=== PATIENT | female | born 1975 | race Caucasian/White ===

== ENCOUNTER 2018-06-14 12:00 | Outpatient (RCR) | payer MEDICAID, SELFPAY ==
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
--- NOTE | 2018-06-14 12:27 | HP.PTDCSUM ---
HP - PT D/C Summary It has been my pleasure to treat BALA KLEIN under orders from ASIYA FUNES, for the diagnosis of LUMBAR DDD AND RADICULOPATHY. for a total of 10 visit(s). Discharge Date: 06/14/18 Please see the following information for a summary of their discharge status. - Subjective Subjective: PATIENT REPORTS SHE IS DEFINATELY BETTER THAN SHE WAS BEFORE SHE HAD PHYSICAL THERAPY. SHE REPORTS SHE IS SLEEPING BETTER AND CAN BEND NOW. SHE REPORTS SHE IS WALKING A LOT BETTER AND EVEN THINKS SHE COULD WALK A HALF MILE NOW. SHE REPORTS IT ISN'T PINCHING LIKE IT USE TO. SHE REPORTS SHE IS DOING HER EXERCISES EVERY DAY AT HOME. SHE REPORTS SHE WOULD LIKE TO CONTINUE ON HER OWN WITH HER HOME EX'S AND SHE PLANS TO GET A MEMBERSHIP TO USE THE POOL AT THE DAYS [facility]. PT REPORTS SHE HAD TO DELAY HER EMG DUE TO ISSUES WITH HER SON. EVEN ABLE TO GO OUT IN [employer] THE OTHER DAY - I WAS OK THE NEXT DAY. PATIENT REPORTS SHE THINKS SHE IS BACK TO WHERE SHE WAS LAST SUMMER IN TERMS OF ACTIVITY TOLERANCE. DAILY ACTIVITY DOES NOT INTENSIFY PAIN LIKE IT DID. PATIENT REPORTS THE BURNING AND TINGLING IN HER FEET ARE EVEN BETTER AND COMES AND GOES NOW INSTEAD OF BEING CONSTANT. DECREASED FOOT SX'S WITH ELEVATION AND INCREASED SYMPTOMS IN THE CAR. - Pain R LB Pain Intensity (Out of 10): 2 - Overall Improvement % Improvement: 90 - Objective Objective/Function: INDEP GAIT INTO PT WITHOUT ANY ASSISTIVE DEVICES OR LOB. INDEP TRANSFER SIT TO STAND WITHOUT UE ASSIST. Motor deficit: YUDI LE'S 5/5. Sensory deficit: YUDI LE LIGHT TOUCH SENSATION APPEARS INTACT AND SYMMETIRCAL EXCEPT IN FEET AND EMG IS PENDING. ROM deficit: YUDI LE'S WFL. Reflexes: 2/3 YUDI LE'S. Dural Signs: POSITIVE RIGHT AND NEGATIVE LEFT LE DTR'S. Lumbar mvmt loss: flex - NIL. ext - MIN. R SG - NIL. L SG - NIL. PATIENT DENIES INCREASED PAIN WITH ROM TESTING TODAY. Core strength: POOR. Palpation: TENDERNESS WITH PALPATION OF YUDI LUMBAR PARASPINALS. NO ACUTE TENDERNESS OF LOWER THORACIC SPINE, LUMBAR SPINE, OR YUDI HIPS. - Goals Goal 1:: DECRASE C/O BACK AND YUDI LE SX'S. Goal Progress: Goal Met Goal 2:: IMPROVE PERSONAL CARE, LIFTING, WALKING, SITTING, STANDING, SLEEP, SOCIAL LIFE, TRAVEL AND WORK/HOMEMAKING [employer]. Goal Progress: Goal Met Goal 3:: INSTRUCT IN PROPHYLAXIS Goal Progress: Goal Met - Plan Plan: D/C AT PATIENTS REQUEST TO INDEP HEP AND WATER PROGRAM. - D/C Information If there are questions or concerns regarding this patient's physical therapy, please feel free to call me at [phone]. Thank you for the referral of this patient. Sincerely, Josefina Oliva, PT, Cert MDT
== END 2018-06-14 19:00 | disposition home or self-care (01) ==
LOC: PT 12:00
PROVIDERS: Family Provider Family Medicine; PCP Family Medicine
DX: M79.7 Fibromyalgia (principal); G89.0 Central pain syndrome; M46.1 Sacroiliitis, not elsewhere classified; R20.2 Paresthesia of skin; M51.36 Other intervertebral disc degeneration, lumbar region; M54.16 Radiculopathy, lumbar region
CPT/HCPCS: 97113; 97162; 97530

== ENCOUNTER 2018-06-15 13:46 | Emergency (ER) | payer MEDICAID, SELFPAY ==
[2018-06-15 13:47] VITALS: BP 157/78; PULSE 62; RESP 16; TEMP 36.6; O2SAT 100; BMI 34.9
--- NOTE | 2018-06-15 13:54 | EKG12_ITS ---
Test Reason : Blood Pressure : / mmHG Vent. Rate : 060 BPM Atrial Rate : 060 BPM P-R Int : 152 ms QRS Dur : 096 ms QT Int : 440 ms P-R-T Axes : 043 056 035 degrees QTc Int : 440 ms Normal sinus rhythm Normal ECG Confirmed by FALGUNI BATISTA, MARIO ([id number]), video news editor KATHY JACKSON ([id number]) on 06/19/2018 1:09:32 PM Referred By: ASIYA FUNES Confirmed By:MARIO MONTES DE OCA MD
--- NOTE | 2018-06-15 13:59 | ED.VIS.GEN ---
History of Present Illness Chief Complaint: Shortness of Breath Detail of Chief Complaint: Central chest pain Informant: Patient Onset: Today Context: - - Onset 1.5 hours prior to presentation while sitting Timing: Continuous Quality: Central vague chest discomfort Location: Central chest Current Severity: Moderate Maximum Severity: Moderate Worsened by: Nothing Relieved by: Nothing Associated Symptoms: Does not feel her normal self Narrative: Patient is a 42-year-old woman history of fibromyalgia who had IV lidocaine therapy for her fibromyalgia. She states she is normally normal after 2 days. She does not feel normal. She has a vague central chest discomfort with radiation, nausea or diaphoresis. Possibly mild shortness of breath. She stated she presented because she wanted to be evaluated. She denies orthopnea or PND. Father had congestive heart failure. She is a non-smoker. She also reports no alcohol or drug use. She denies history of PE, DVT or any risk factors. She denies leg pain, swelling discoloration. She denies food intolerance. - Past Medical History (1) Fibromyalgia affecting multiple sites Status: Chronic (2) Edema Status: Acute (3) Hypertension Status: Acute Past Medical History - Allergies and Home Meds Allergies/Adverse Reactions: Allergies No Known Allergies Allergy (Verified 06/15/18 13:49) Primary Care Physician: Evi Prather DO [Primary Care Provider] - Prior records reviewed: Yes Smoking Status: Never smoker Alcohol: None Drugs: None Review of Systems General: Denies: Chills, Fever, Sweats Eyes: Denies: Visual changes - bilaterally, Blurred Vision - bilaterally, Diplopia ENT: Denies: Bilateral ear pain, Rhinorrhea, Sore throat Cardiovascular: Reports: Chest pain. Denies: Palpitations Respiratory: Reports: Dyspnea. Denies: Cough, Dyspnea on exertion Gastrointestinal: Denies: Abdominal pain, Nausea, Vomiting, Diarrhea, Melena, Hematochezia Genitourinary: Denies: Dysuria, Hematuria, Frequency Musculoskeletal: Denies: Back pain, Extremity Pain Skin: Denies: Rash, Wounds Neurological: Denies: Headache, Weakness, Numbness Endocrine: Denies: Polyuria, Polydipsia Allergy: Denies: Uticaria, Swelling of the mouth Physical Exam Vital Signs/Narrative: Vital Signs Temp Pulse Resp BP Pulse Ox 06/15/18 13:47 98 F 62 16 157/78 H 100 Inital Vital Signs reviewed: Yes General: Well nourished, Well developed, Obese, No Acute Distress Head: Normocephalic, Atraumatic Eyes: Perrl, EOMI ENT: Moist mucous membranes, No rhinorrhea Neck: Supple, Nontender Cardiovascular: Regular rate, Regular rhythm, No murmurs Respiratory: No distress, CTA bilaterally, Chest nontender Abdomen: Soft, Nontender, Nondistended, Normal bowel sounds Back: Nontender, Normal Inspection Extremities: Nontender, No edema Skin: Normal color, No rash, - - Patient reports pain out of proportion to light tactile stimulus chest, abdomen and extremities. Neurological: Alert, Oriented x3, Cranial nerves II-XII grossly intact, Normal Strength, Normal Sensation, Normal Gait Psychological: Normal affect, Normal Mood Diagnostic/Tx/Re-eval Chest X-Ray - ED: 2 View, Read by ED Physician, Normal, Heart, Lungs, Mediastinum, Bony Structures, No Acute Disease 06/15/18 15:00 Chest PA and Lateral [RAD] Stat Laboratory Results 06/15/18 14:57 Troponin I < 0.015 - Rhythm Strip Rhythm Strip: Sinus Rhythm Rate: 62 Ectopy: None - EKG Initial EKG Interpretation: Sinus Rhythm - Ventricular rate 60. FL interval, QRS duration, QT interval and axis are normal. The EKG is normal. - Medical Decision Making EKG was obtained per protocol and to evaluate for cardiac ischemia. Patient's heart score is 0 at this point. If troponin is normal her heart score remains 0. Chest x-ray was obtained to evaluate for infiltrate, CHF or other cause of shortness of breath. EKG was obtained and reveals a sinus rhythm rate of 60 and is normal. Patient is PERC negative. With normal troponin heart score of 0 will discharge to home and outpatient follow-up with PCP ED Disposition - Plan for ED Patient: Disposition: Home or Assisted Living Diagnosis: Central chest pain, Dyspnea, unspecified, Fibromyalgia affecting multiple sites, Hypertension Instructions: ED Chest Pain NonCardiac Referrals: Evi Prather DO [Primary Care Provider] - 3-5 Days
[2018-06-15 14:03] VITALS: O2SAT 95
--- NOTE | 2018-06-15 15:00 | RAD_ITS ---
STUDY: X-RAY CHEST REASON FOR EXAM: Female, 42 years old. chest pain for a couple hours and SOB TECHNIQUE: Frontal and lateral views of the chest. COMPARISON: None. FINDINGS: The lungs are clear and expanded. There is no demonstrated pleural abnormality. Normal size heart. Normal mediastinum and wilmer. Normal visualized pulmonary arteries. Normal visualized aortic arch and descending thoracic aorta. Normal visualized thoracic spine. There is degenerative osteoarthritis of the bilateral shoulders. There is no demonstrated abnormality of the visualized soft tissue structures of the upper abdomen. RAD/Chest PA and Lateral IMPRESSION: Degenerative changes, as described above. No demonstrated acute cardiopulmonary process. Electronically Signed: Angi Mcelroy, at 16:01 EDT Tel , Service support ,
[2018-06-15 15:31] VITALS: PULSE 50; O2SAT 99
== END 2018-06-15 15:35 | disposition home or self-care (01) ==
PROVIDERS: Emergency Provider Emergency Medicine; Family Provider Family Medicine; PCP Family Medicine
DX: R06.02 Shortness of breath (principal); R07.9 Chest pain, unspecified; M79.7 Fibromyalgia; I10 Essential (primary) hypertension; Z79.899 Other long term (current) drug therapy
CPT/HCPCS: 71046; 84484; 93005; 99285; A4216

== ENCOUNTER → 2018-07-07 08:01 | Outpatient (CLI) | payer MEDICAID, SELFPAY ==
[2018-06-15 13:47] VITALS: BMI 34.9
--- NOTE | 2018-07-07 08:03 | RAD_ITS ---
STUDY: X-RAY - RIGHT KNEE REASON FOR EXAM: Female, 42 years old. Knee pain times many years TECHNIQUE: 4 view(s) of the knee. COMPARISON: Report of previous study of 12/24/2011. FINDINGS: Normal visualized distal femur. Normal visualized proximal tibia and fibula. Normal proximal tibiofibular articulation. There is mild degenerative arthrosis of the medial femorotibial compartment. Normal lateral femorotibial compartment. Normal patellofemoral articulation. The soft tissue structures are unremarkable. RAD/Knee 4 or More Views IMPRESSION: Minimal degenerative changes of the medial knee compartment. Electronically Signed: Dada Hamm MD at 16:52 EDT , Service support ,
== END ==
PROVIDERS: Family Provider Family Medicine; PCP Family Medicine; Referring Provider Family Medicine; Visit Provider Family Medicine
DX: M25.561 Pain in right knee (principal)
CPT/HCPCS: 73564

== ENCOUNTER → 2018-12-15 15:24 | Outpatient (CLI) | payer MEDICAID, SELFPAY ==
--- NOTE | 2018-12-15 16:00 | MRI_ITS ---
STUDY: MRI LUMBAR SPINE WITHOUT CONTRAST REASON FOR EXAM: Female, 43 years old. Low back pain, right leg and hip pain TECHNIQUE: Standardized fat and water weighted pulse sequences were obtained in the sagittal and axial planes. COMPARISON: 31 October 2008 FINDINGS: lumbar spine is intact and aligned. Marrow, paraspinous soft tissues and SI joints are unremarkable. There are minor age-related changes in the discs and facets. Conus medullaris terminates at the appropriate level with unremarkable cauda equina. Spinal canal is patent. Foramina and lateral recesses are patent. Appearance is stable since 2008. MRI/Spine Lumbar (Routine) IMPRESSION: 1. Patent canal, no neural compression. 2. No change since 2008. Electronically Signed: Karen Kennedy, at 17:58 EDT Tel , Service support ,
== END ==
PROVIDERS: Family Provider Family Medicine; PCP Family Medicine
DX: M54.16 Radiculopathy, lumbar region (principal)
CPT/HCPCS: 72148

== ENCOUNTER 2019-04-28 11:41 | Emergency (ER) | payer MEDICAID, SELFPAY ==
[2019-04-28 11:44] VITALS: BP 154/78; PULSE 83; RESP 17; TEMP 37.1; O2SAT 100; BMI 34.1
--- NOTE | 2019-04-28 12:30 | RAD_ITS ---
STUDY: X-RAY - RIGHT HAND REASON FOR EXAM: Female, 43 years old. PAIN/ STS METACARPI AREA, RADIAL SIDE. HX DOG BITE TECHNIQUE: 3 view(s) of the hand. COMPARISON: April 21, 2015 FINDINGS: There is a side plate cortical screws transfixing the distal radius. One of the cortical screws still partially projects into the cortical surface of the distal radius with now with surrounding bony resorption. Normal distal radioulnar joint. Normal visualized carpal bones. Normal carpal articulations Normal carpometacarpal articulation of the thumb. Normal second through fifth carpometacarpal joints. Normal metacarpi. Normal metacarpophalangeal joint of the thumb. Normal interphalangeal joint of the thumb. Normal proximal and distal phalanges of the thumb. Normal metacarpophalangeal joints of the second through fifth fingers. Normal proximal and distal interphalangeal joints of the second through fifth fingers. Normal phalanges of the second through fifth fingers. The lateral view shows substantial superficial soft tissue edema. RAD/Hand Min 3 Views IMPRESSION: Stable open reduction internal fixation of the distal radius healed fracture. No visualized acute fracture. Superficial soft tissue edema. No visualized acute fracture no visualized foreign body. Electronically Signed: Melissa Malone MD at 13:20 EST Tel , Service support ,
--- NOTE | 2019-04-28 12:32 | ED.VIS.GEN ---
History of Present Illness Chief Complaint: Bite Informant: Patient Onset: Today Maximum Severity: Mild Narrative: Dog bite right hand stray dog today patient denies really any significant history was walking her dog when another dog approached and she was inadvertently bitten by this other large dog right hand this occurred around 830 she presents for evaluation she is right-hand dominant Past Medical History - Allergies and Home Meds Allergies/Adverse Reactions: Allergies No Known Allergies Allergy (Verified 04/28/19 11:42) Primary Care Physician: Evi Prather DO [Primary Care Provider] - Past Medical History: - Smoking Status: Former smoker Review of Systems ROS: - As above General: Denies: Chills, Fever, Sweats Eyes: Denies: Visual changes - bilaterally, Diplopia ENT: Denies: Rhinorrhea, Sore throat Cardiovascular: Denies: Chest pain, Palpitations Respiratory: Denies: Dyspnea, Cough, Dyspnea on exertion Gastrointestinal: Denies: Abdominal pain, Nausea, Vomiting, Diarrhea, Melena, Hematochezia Genitourinary: Denies: Dysuria, Hematuria, Frequency Musculoskeletal: Reports: -. Denies: Back pain, Extremity Pain Skin: Denies: Rash, Wounds Neurological: Denies: Headache, Weakness, Numbness Physical Exam Vital Signs/Narrative: Vital Signs Temp Pulse Resp BP Pulse Ox 04/28/19 11:44 98.8 F 83 17 154/78 H 100 General: Well nourished, Well developed, No Acute Distress Head: Normocephalic, Atraumatic Eyes: Perrl, EOMI ENT: Moist mucous membranes, No rhinorrhea Neck: Supple, Nontender Cardiovascular: Regular rate, Regular rhythm, No murmurs Respiratory: No distress, CTA bilaterally, Chest nontender Abdomen: Soft, Nontender, Nondistended, Normal bowel sounds Back: Nontender, Normal Inspection Extremities: Nontender, No edema, - - The patient has contusion and edema and scattered lacerations over the right hand dorsally over the thenar area and over the mid palmar area of the hand, there is no significant bleeding from these areas, she is able to flex and extend at the MCP PIP and DIP joint of fingers thumb function appears to be intact hand movement is restricted because of pain the wrist is unremarkable Skin: Normal color, No rash Neurological: Alert, Oriented x3, Cranial nerves II-XII grossly intact, Normal Strength, Normal Sensation Psychological: Normal affect, Normal Mood Diagnostic/Tx/Re-eval - Medical Decision Making Dog bite right hand given all the above x-rays pain management antibiotics ED Disposition - Plan for ED Patient: Referrals: Evi Prather DO [Primary Care Provider] -
[2019-04-28] MEDS: Diphth,Pertuss(Acell),Tet Vac 0.5 ML Vial IM (12:52)
[2019-04-28] MEDS: Ondansetron ODT 4 MG Tablet PO (12:52)
[2019-04-28] MEDS: morphine 10 MG/ML Syringe 8 MG IM (12:54)
--- NOTE | 2019-04-28 13:24 | DCINST.ED_ITS ---
ED Disposition - Plan for ED Patient: Instructions: Dog Bite Prescriptions: Amox/Clavulanate Tablet [Augmentin Tablet] 875 mg PO Q12H #20 tab Prescription Printed Naproxen [Naprosyn] 500 mg PO BID PRN #20 tab Prescription Printed Hydrocodone Bitart/Apap 5-325 [[place] 5MG-325MG] 1 tab PO Q4H PRN PRN 2 Days #10 tab PRN Reason: Pain Prescription Printed Referrals: Evi Prather DO [Primary Care Provider] - Jm Miller [NON-STAFF] - Additional Instructions: Wound care splinting follow-up with your orthopedic surgeon's office or plastic surgery office return for signs of infection or change in symptoms
[2019-04-28] MEDS: Amox/Clavulanate 875 MG Tablet PO (13:51)
[2019-04-28 14:12] VITALS: BP 146/87; PULSE 67; RESP 17; O2SAT 97
== END 2019-04-28 14:14 | disposition home or self-care (01) ==
LOC: ED 13:00
PROVIDERS: Emergency Provider Emergency Medicine; PCP Family Medicine
DX: S61.451A Open bite of right hand, initial encounter (principal); W54.0XXA Bitten by dog, initial encounter; Y93.K1 Activity, walking an animal; Y99.8 Other external cause status; Z87.891 Personal history of nicotine dependence
CPT/HCPCS: 73130; 90715; 96372; 99282

== ENCOUNTER 2019-06-05 13:30 | Outpatient (RCR) | payer MEDICAID, SELFPAY ==
[2019-05-01 08:06] VITALS: BMI 34.1
[2019-05-08 08:26] VITALS: BMI 34.1
--- NOTE | 2019-05-08 16:06 | HP.OTEVAL_ITS ---
Patient's Visit Information BALA KLEIN is a 43 year old F, referred to Occupational Therapy by Dr. Lizbeth Layne DO, with a diagnosis of right dog bite. Date of Evaluation: 05/08/19 Occupational Therapist: CHEO Dutton/Dwight, CHT - Subjective Subjective: This 43 year old female was seen for OT eval with dx of right dog bite. pt states she was bit by a dog on 2019. pt presents today with limited ROM, sensitivity and limited use of right hand with ADls and IADLS. pt would like to know what she can do to return to using her and with ADLs and IADLS. - Pain right hand 9 Pain Intensity Range: 9 - Objective Objective/Observation: wound on volar hand 1.5cm long .2cm wide. dorsal 1.0cm long x .2 wide - ROM Wrist: right 40/45 left 60/70 ROM Comments: pt demo the ability to form a composite fist- pain with motion but full ROM - Strength Transaction Processor: right 15# left 55# Lateral Pinch: right 6# left 8# Tripod Pinch: right 6# left 8# - Edema Wrist: right 18cm left 17.5cm Proximal Phalanx: right 21cm left 20cm Other: right 23cm web space 21cm - Sensation Thumb: right 2.83 left 2.83 Index: right 3.22 left 2.83 Middle: right 2.83 left 2.83 Ring: right 2.83 left 2.83 Little: right 2.83 left 2.83 - Quick DASH-Disab of Arm,Shoulder& Hand Quick DASH Score: [phone] - Goals Goal:: 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 Pt will demo an increase in lateral and tripod pinch by 2# to increase pts independent with opening baggies, containers at PLOF by D/C. Goal:: Pt will report pain no greater than 1/10 with use of affected hand with BADLs and IADLs by d/c. Goal:: pt will demo a reduction in right hand by 1 cm or more to decrease stress on underlying structures. Pt will demo understanding of edema control techniques by end of 2nd session and perform recommendations to control edema. Goal:: Pt will demo understanding of scar mtg. by end of 2nd session to increase tissue extensibility to limit scar adhesions and allow full tendons function by d/c. Pt will demo a decrease is scar sensitivity to tolerate wearing long sleeve shirts by D/c. - Rehabilitation General Assessment: pt demo with edema, pain, and sensitivity of right hand due to bog bite- pt demo with two open wounds. pt is currently limited with her ability to perform her ADLs and IADLS. Pt would benefit from skilled OT services 1-2x week for 6 weeks to return pt to PLOF. Today therapist provided warm water soak, wound care, ed. pt on scar mtg and desensitization. pt was given handout on HEP. pt demo understanding and agree to POC. Rehabilitation Potential: Good - Anticipated Interventions Anticipated Interventions: A/AAROM/PROM, Strengthening, Edema Control, Scar Care, Desensitization, Sensory Retraining, Wound Care, Modalities - Visit Plan Frequency: 2x /Week Duration: 6 Weeks TEXT: Thank you for the opportunity to evaluate your patient. For Medicare and Medicare HMO plans, please review the plan of care and approve it. It will need to be FAXED BACK to us at [phone] for Medicare purposes. Please let me know if there are questions or concerns regarding this plan of care. Physician Signature: Date:
--- NOTE | 2019-06-05 13:49 | HP.OTDCSUM ---
HP - OT D/C Summary It has been my pleasure to treat BALA KLEIN under orders from Dr. Lizbeth Layne DO, for the diagnosis of right dog bite for a total of 6 visit(s). Please see the following information for a summary of their discharge status. - Overall Improvement % Improvement: 85 - Objective Objective/Function: right 40# left 45#. right lateral pinch 10#. right tripod pinch 10#. edema webspace 21cm initial was 23cm . pt states she GERARDO with all ADLs and IADLS - Goals Patient Goals: Regain Mobility, Regain Strength, Decrease Pain, Decrease Swelling/Stiffness Goal:: PT will demo an increase in facility practice specialist strength by 20# to increase independent with basic occupations of daily living to return pt to PLOF by D/C. Pt will demo an increase in lateral and tripod pinch by 2# to increase pts independent with opening baggies, containers at PLOF by D/C. Goal:: Pt will report pain no greater than 1/10 with use of affected hand with BADLs and IADLs by d/c. Goal:: pt will demo a reduction in right hand by 1 cm or more to decrease stress on underlying structures. Pt will demo understanding of edema control techniques by end of 2nd session and perform recommendations to control edema. Goal:: Pt will demo understanding of scar mtg. by end of 2nd session to increase tissue extensibility to limit scar adhesions and allow full tendons function by d/c. Pt will demo a decrease is scar sensitivity to tolerate wearing long sleeve shirts by D/c. - Plan Plan: cont with POC to increase use and strength as pt jennifer. - use of BTE to increase pts strength - D/C Information Discharge Comments: pt was seen for 6 OT visit- pt demo full return of her ROM and a increase in right facility practice specialist strength from 15# to 45# pt reports she still gets pain from time to time but pt states she is able to mtg her pain. pts edema has resolved. pt reports she is IND with ADLS and IADLs. pt has met goals in OT and is D/C at this time. If there are questions or concerns regarding this patient's occupational therapy, please fell free to call me at [phone]. Thank you for the referral of this patient. Sincerely, Zuleyma Sharma, OTR/L, CHT
== END 2019-06-05 19:00 | disposition home or self-care (01) ==
LOC: OT 13:30
PROVIDERS: PCP Family Medicine; Referring Provider Orthopaedic Surgery; Visit Provider Orthopaedic Surgery
DX: S61.451D Open bite of right hand, subsequent encounter (principal); W54.0XXD Bitten by dog, subsequent encounter
CPT/HCPCS: 97035; 97110; 97140; 97166; 97530

== ENCOUNTER → 2019-10-29 15:10 | Outpatient (CLI) | payer MEDICAID, SELFPAY ==
[2019-05-08 08:26] VITALS: BMI 34.1
--- NOTE | 2019-10-29 15:23 | RAD_ITS ---
STUDY: X-RAY - THORACIC SPINE REASON FOR EXAM: Female, 44 years old. Thoracic radiculitis TECHNIQUE: 5 view(s) of the thoracic spine were obtained. COMPARISON: None. FINDINGS: There is an increase in the normal thoracic kyphosis. There is no substantial scoliosis. There is multilevel endplate spondylosis of the thoracic vertebrae. There is multilevel disc space narrowing of the thoracic spine. The soft tissue structures are unremarkable. RAD/Thoracic Spine Min 4 Views IMPRESSION: Increased kyphosis. Spondylosis and disc space narrowing. Electronically Signed: Jonny Schwab, at 15:13 EDT , Service support ,
== END ==
PROVIDERS: PCP Family Medicine
DX: M54.14 Radiculopathy, thoracic region (principal)
CPT/HCPCS: 72074

== ENCOUNTER → 2020-02-27 17:50 | Outpatient (CLI) | payer MEDICAID, SELFPAY ==
[2019-05-08 08:26] VITALS: BMI 34.1
== END ==
PROVIDERS: PCP Family Medicine; Referring Provider Family Medicine; Visit Provider Family Medicine
DX: Z20.828 Contact with and (suspected) exposure to other viral communicable diseases (principal); R06.00 Dyspnea, unspecified
CPT/HCPCS: 87635; C9803; U0003

== ENCOUNTER → 2020-05-27 06:57 | Outpatient (CLI) | payer MEDICAID, SELFPAY ==
[2019-05-08 08:26] VITALS: BMI 34.1
[2020-05-27 08:35] LABS: Anion Gap 7 (5-15); BUN 14 mg/dL (7-18); BUN/Creat Ratio 16.6 RATIO (10-20); Calcium,Total 8.8 mg/dL (8.5-10.1); Chloride 105 mmol/L (98-107); Creatinine, Serum 0.84 mg/dL (0.55-1.02); EST Glomerular Filtration Rate 78 mL/min (>60); Est Glom Filt Rate - Afr Amer 94 mL/min (>60); Glucose 91 mg/dL (74-106); Potassium 3.2 mmol/L (3.5-5.1); Sodium Level 139 mmol/L (136-145)
[2020-05-27 08:45] LABS: Hemoglobin A1c 5.6 % (3.8-5.6)
== END ==
PROVIDERS: PCP Family Medicine; Referring Provider Family Medicine; Visit Provider Family Medicine
DX: R81 Glycosuria (principal)
CPT/HCPCS: 36415; 80048; 83036

== ENCOUNTER → 2020-10-07 11:07 | Outpatient (CLI) | payer MEDICAID, SELFPAY ==
[2020-10-07 15:24] LABS: Color, Urine Yellow (Yellow); Glucose, Dipstick Normal (Normal); Ketone-Dipstick Negative (Negative); Leukocyte Esterase-Dipstick Negative /ul (Negative); Nitrite-Dipstick Negative (Negative); Occult Blood-Urine Negative /ul (Negative); Protein-Dipstick Negative (Negative); Urine Bilirubin Dipstick Negative (Negative); Urine Clarity Clear (Clear); Urine Urobilinogen Normal (Normal)
[2020-10-07 15:29] LABS: Erythrocyte Sedimentation Rate 10 mm/hr (0-30)
[2020-10-07 15:39] LABS: Vitamin B12 387 pg/mL (211-911); Vitamin D,25 Hydroxy 26.4 ng/mL
[2020-10-07 15:49] LABS: Absolute Lymphocyte Count 1.79 X10^3/uL (0.83-4.51); Absolute Neutrophil Count 2.9 X10^3/uL (2.0-7.7); Basophil# 0.04 X10^3/uL; Basophil% 0.8 % (0-1); Eosinophil# 0.14 X10^3/uL; Eosinophils% 2.7 % (0-5); Hematocrit 35.1 % (37-47); Hemoglobin 9.6 g/dL (12.0-15.0); Lymphocyte # 1.79 X10^3/ul (0.83-4.51); Lymphocyte % 34.4 % (19-41); Mean Corp Hgb Conc 27.4 g/dL (32-36); Mean Corpuscular Hgb 18.8 pg (27.0-32.0); Mean Corpuscular Volume 68.8 fL (81-99); Mean Platelet Vol. 10.5 fl (6.2-12.0); Monocyte# 0.31 X10^3/uL; NRBC Flagged by Analyzer 0 % (0-5); Neutrophil # 2.91 X10^3/uL (2.7-7.7); Neutrophil % 55.9 % (47-70); Platelet Count 389 K/mm3 (150-450); RBC Distribution Width CV 17.6 % (11.6-14.6); RBC Distribution Width SD 42.7 fl (35.1-43.9); White Blood Count 5.2 K/mm3 (4.4-11.0)
[2020-10-07 15:51] LABS: AST(SGOT) 20 U/L (15-37); Alanine Aminotransfer ALT/SGPT 25 U/L (13-56); Alkaline Phosphatase 63 U/L (45-117); Anion Gap 10 (5-15); BUN 15 mg/dL (7-18); BUN/Creat Ratio 15.8 RATIO (10-20); CRP < 2.90 mg/L (0.0-3.0); Calcium,Total 9.3 mg/dL (8.5-10.1); Chloride 105 mmol/L (98-107); Creatinine, Serum 0.95 mg/dL (0.55-1.02); EST Glomerular Filtration Rate 68 mL/min (>60); Est Glom Filt Rate - Afr Amer 82 mL/min (>60); Globulin 3.9 g/dL (2.2-4.2); Glucose 83 mg/dL (74-106); Potassium 3.2 mmol/L (3.5-5.1); Protein, Total 7.9 g/dL (6.4-8.2); Rheumatoid Factor < 10.0 IU/mL (<15); Sodium Level 138 mmol/L (136-145)
[2020-10-09 15:40] LABS: Anti-Nuclear Antibody Test Negative (.)
[2020-10-10 08:16] LABS: CCP IgG Antibodies 5 units (0-19)
== END ==
PROVIDERS: PCP Family Medicine; Referring Provider Family Medicine; Visit Provider Family Medicine
DX: M06.4 Inflammatory polyarthropathy (principal); I10 Essential (primary) hypertension; G62.9 Polyneuropathy, unspecified; R60.9 Edema, unspecified
CPT/HCPCS: 36415; 80053; 81002; 82306; 82607; 85025; 85652; 86038; 86140; 86200; 86431

== ENCOUNTER → 2020-10-28 09:59 | Outpatient (CLI) | payer MEDICAID, SELFPAY ==
[2020-10-28 12:01] LABS: Absolute Lymphocyte Count 1.24 X10^3/uL (0.83-4.51); Absolute Neutrophil Count 2.6 X10^3/uL (2.0-7.7); Basophil# 0.03 X10^3/uL; Basophil% 0.7 % (0-1); Eosinophil# 0.14 X10^3/uL; Eosinophils% 3.2 % (0-5); Hematocrit 37.2 % (37-47); Hemoglobin 10.4 g/dL (12.0-15.0); Lymphocyte # 1.24 X10^3/ul (0.83-4.51); Lymphocyte % 28.7 % (19-41); Mean Corpuscular Hgb 20.8 pg (27.0-32.0); Mean Corpuscular Volume 74.4 fL (81-99); Mean Platelet Vol. 10.3 fl (6.2-12.0); Monocyte# 0.26 X10^3/uL; NRBC Flagged by Analyzer 0 % (0-5); Neutrophil # 2.64 X10^3/uL (2.7-7.7); Neutrophil % 61.2 % (47-70); POSITIVE MORPHOLOGY YES; Platelet Count 320 K/mm3 (150-450); RBC Distribution Width CV 23.8 % (11.6-14.6); RBC Distribution Width SD 61.1 fl (35.1-43.9); White Blood Count 4.3 K/mm3 (4.4-11.0)
[2020-10-28 12:16] LABS: Differential Indicated SCAN CRITERIA MET
[2020-10-28 12:28] LABS: AST(SGOT) 22 U/L (15-37); Alanine Aminotransfer ALT/SGPT 25 U/L (13-56); Albumin, Serum 3.6 g/dL (3.2-5.0); Alkaline Phosphatase 54 U/L (45-117); Anion Gap 6 (5-15); BUN 10 mg/dL (7-18); BUN/Creat Ratio 12.9 RATIO (10-20); Calcium,Total 8.7 mg/dL (8.5-10.1); Chloride 108 mmol/L (98-107); Creatinine, Serum 0.77 mg/dL (0.55-1.02); EST Glomerular Filtration Rate 86 mL/min (>60); Est Glom Filt Rate - Afr Amer 104 mL/min (>60); Ferritin 13 ng/mL (8-252); Globulin 3.5 g/dL (2.2-4.2); Glucose 90 mg/dL (74-106); Iron 39 ug/dL (50-170); Magnesium 1.9 mg/dL (1.6-2.6); Potassium 3.2 mmol/L (3.5-5.1); Protein, Total 7.1 g/dL (6.4-8.2); Sodium Level 141 mmol/L (136-145)
[2020-10-28 12:33] LABS: Vitamin B12 568 pg/mL (211-911)
[2020-10-28 12:48] LABS: Anisocytosis 1+
== END ==
PROVIDERS: PCP Family Medicine; Referring Provider Family Medicine; Visit Provider Family Medicine
DX: E55.9 Vitamin D deficiency, unspecified (principal); E53.8 Deficiency of other specified B group vitamins; E61.1 Iron deficiency; E87.6 Hypokalemia
CPT/HCPCS: 36415; 80053; 82306; 82607; 82728; 83540; 83735; 85025

== ENCOUNTER → 2021-01-07 07:49 | Outpatient (CLI) | payer MEDICAID, SELFPAY ==
--- NOTE | 2021-01-07 07:51 | US_ITS ---
STUDY: ULTRASOUND OF THE FEMALE PELVIS - COMPLETE REASON FOR EXAM: Female, 45 years old. AUB LMP: 12/28/2020 TECHNIQUE: Transabdominal and Transvaginal TECHNICAL QUALITY: Adequate. COMPARISON: None. FINDINGS: The uterus is anteverted and is in a midline position. The uterus measures 9.7 x 5.2 x 4.8 cm. Normal uterine cervix. The endometrium measures 4 mm in thickness, and is hyperechoic. There is no demonstrated endometrial mass. 1 cm hypoechoic mass in the anterior body of uterus consistent with a submucosal fibroid. I.U.D. - The patient does not have an I.U.D. The right ovary is visualized. The right ovary measures 2.9 x 2.2 x 1.3 cm. There is no right ovarian cyst or ovarian mass. There is no visualized right adnexal mass or complex lesion. There is normal arterial and normal venous vascularity. The left ovary is visualized. The left ovary measures 3.4 x 2.3 x 2.7 cm. There is no left ovarian cyst or ovarian mass. There is no visualized left adnexal mass or complex lesion. There is normal arterial and normal venous vascularity. There is no fluid in the cul-de-sac. The pre void volume of the bladder was ml. The post void volume of the bladder was ml. Polycystic ovary disease: No. US/Pelvic (Non ) IMPRESSION: 1 cm submucosal fibroid in the anterior body of the uterus. Electronically Signed: Gorge Lynne MD at 16:13 EDT Tel , Service support ,
--- NOTE | 2021-01-07 08:25 | US_ITS ---
STUDY: ULTRASOUND OF THE FEMALE PELVIS - COMPLETE REASON FOR EXAM: Female, 45 years old. AUB LMP: 12/28/2020 TECHNIQUE: Transabdominal and Transvaginal TECHNICAL QUALITY: Adequate. COMPARISON: None. FINDINGS: The uterus is anteverted and is in a midline position. The uterus measures 9.7 x 5.2 x 4.8 cm. Normal uterine cervix. The endometrium measures 4 mm in thickness, and is hyperechoic. There is no demonstrated endometrial mass. 1 cm hypoechoic mass in the anterior body of uterus consistent with a submucosal fibroid. I.U.D. - The patient does not have an I.U.D. The right ovary is visualized. The right ovary measures 2.9 x 2.2 x 1.3 cm. There is no right ovarian cyst or ovarian mass. There is no visualized right adnexal mass or complex lesion. There is normal arterial and normal venous vascularity. The left ovary is visualized. The left ovary measures 3.4 x 2.3 x 2.7 cm. There is no left ovarian cyst or ovarian mass. There is no visualized left adnexal mass or complex lesion. There is normal arterial and normal venous vascularity. There is no fluid in the cul-de-sac. The pre void volume of the bladder was ml. The post void volume of the bladder was ml. Polycystic ovary disease: No. US/Transvaginal Non- IMPRESSION: 1 cm submucosal fibroid in the anterior body of the uterus. Electronically Signed: Gorge Lynne MD at 16:13 EDT Tel , Service support ,
== END ==
PROVIDERS: PCP Family Medicine; Referring Provider Family Medicine; Visit Provider Family Medicine
DX: N92.1 Excessive and frequent menstruation with irregular cycle (principal)
CPT/HCPCS: 76830; 76856

== ENCOUNTER → 2021-01-08 16:48 | Outpatient (CLI) | payer MEDICAID, SELFPAY ==
--- NOTE | 2021-01-08 16:50 | RAD_ITS ---
STUDY: X-RAY - LEFT FOOT CLINICAL: Female, 45 years old. injury TECHNIQUE: 3 view(s) of the foot. COMPARISON: None. FINDINGS: Normal talus, calcaneus, and tarsal bones. Normal visualized subtalar, talonavicular, calcaneocuboid, tarsal and tarsometatarsal articulations. Normal metatarsi. Normal metatarsophalangeal joint of the great toe. Normal tibial and fibular sesamoid bones. Normal interphalangeal joint of the great toe. Normal phalanges of the great toe. Normal second through fifth metatarsophalangeal joints. Normal interphalangeal joints and phalanges of the lesser toes. There is soft tissue swelling of the lateral hindfoot. There is a tiny bony density lateral to the cuboid. This appears fairly well corticated and may represent accessory ossicle rather than avulsion fracture. CT would be helpful for more definitive evaluation however if clinically warranted RAD/Foot min 3 Views IMPRESSION: No definitive evidence for acute fracture or dislocation.. Cannot definitively exclude tiny cortical avulsion of the lateral hindfoot versus accessory ossicle. CT would be useful for more definitive evaluation if indicated Electronically Signed: Juan Tracy MD at 17:11 EDT , Service support ,
--- NOTE | 2021-01-08 16:50 | RAD_ITS ---
STUDY: X-RAY - LEFT ANKLE REASON FOR EXAM: Female, 45 years old. injury TECHNIQUE: 3 view(s) of the ankle. COMPARISON: None. FINDINGS: Normal visualized distal tibia and fibula. Normal medial and lateral malleoli. Normal tibiotalar articulation and ankle mortise. Normal visualized talus and calcaneus. The visualized subtalar, talonavicular, calcaneocuboid and tarsal articulations are normal. Soft tissue swelling overlying the lateral malleolus.. Tiny bony density lateral to the cuboid possibly representing cortical avulsion however an exact fracture site is not visualized. RAD/Ankle min 3 Views IMPRESSION: Lateral malleolus sprain. No fracture or dislocation of the ankle. Tiny bony density lateral to the hindfoot possibly representing cortical avulsion although the exact site is not visualized. CT would be helpful for further evaluation if clinically warranted Electronically Signed: Juan Tracy MD at 17:09 EDT , Service support ,
== END ==
PROVIDERS: PCP Family Medicine; Referring Provider Physician Assistant; Visit Provider Physician Assistant
DX: S99.912A Unspecified injury of left ankle, initial encounter (principal); S99.922A Unspecified injury of left foot, initial encounter
CPT/HCPCS: 73610; 73630

== ENCOUNTER 2021-02-05 10:00 | Day surgery (SDC) | payer MEDICAID, SELFPAY ==
[2021-02-05] VITALS (8 sets, daily range): BP systolic 115–137; BP diastolic 59–83; PULSE 52–60; RESP 16; TEMP 35.8–37; O2SAT 95–99; BMI 33.9
--- NOTE | 2021-02-05 | EMB_PTH ---
PATIENT: BALA KLEIN LOC: [facility] [place] U#:[id number] AGE/SX: 45/F ROOM: RE02/05/[address]: Dr. Marielle Calderon DO : 1975 BED: DIS: 02/05/2021 SPEC #: [id number] RECD: 02/05/21 15:23 STATUS: LEE KULDEEP #: [id number] STEFANIA: 02/05/21 00:[address]: Marielle Calderon DEPT: SURGICAL PATHOLOGY RECD BY: German Campbell ENTERED: 02/06/21 09:51 SP TYPE: ENDOM BX/C OTHR DR: Dr. Evi Prather DO Tissues: Endometrium, NOS Procedures: Surgery Specimen Level IV HEADER OPERATION: Hysteroscopy, D & C, Leni ablation PRE-OP DIAGNOSIS: Abnormal uterine bleeding TISSUE SUBMITTED: Endometrial curettings MICROSCOPIC DIAGNOSIS Endometrial curettings: Dyssynchronous endometrium consisting of weakly secretory and weakly proliferative endometrium with glandular and stromal breakdown. Fragments of benign ecto- and endocervical epithelium, blood and mucous. See comment. SARAY:braulio 02/09/2021 COMMENT Clinical correlation and appropriate follow up are necessary. MICROSCOPIC DESCRIPTION Slides are reviewed. GROSS DESCRIPTION Received in fixative is one container labeled with the patient's name and designated endometrial curettings. The specimen consists of multiple fragments of hemorrhagic soft tissue that in aggregate measure 7.5 x 3 x 0.3 cm. The entire specimen is submitted in three cassettes. / SARAY:braulio 02/06/21 TC:5 CPT: 69120
[2021-02-05] MEDS: Lactated Ringers 1,000 ML 15 ML IV ×2 (10:10→11:53)
[2021-02-05 10:46] LABS: Internal QC Validated? YES +Cl - CLEAR BKGD; Pregnancy, Urine Negative Negative
[2021-02-05 10:48] LABS: Hematocrit 42.9 % (37-47); Hemoglobin 13.9 g/dL (12.0-15.0); Mean Corp Hgb Conc 32.4 g/dL (32-36); Mean Corpuscular Hgb 27.3 pg (27.0-32.0); Mean Corpuscular Volume 84.1 fL (81-99); Mean Platelet Vol. 9.7 fl (6.2-12.0); Platelet Count 247 K/mm3 (150-450); RBC Distribution Width SD 45.2 fl (35.1-43.9); White Blood Count 5.2 K/mm3 (4.4-11.0)
--- NOTE | 2021-02-05 12:19 | DCINST_ITS ---
Discharge Instructions Diet Discharge Diet: No restrictions Activity Discharge Activity: May Drive (24 hours after surgery) and May Shower Return to work on:: 02/09/21 May resume sexual activity in: 1 week (No tampons, intercourse, hot tubs, tub baths, or pools. You will have cramping and light bleeding that can have tissue and black-brown mixed in. ) Weight Bearing Status: Weight bearing as tolerated Lifting Restrictions: None Dressing / Incision Call your doctor if you observe: Fever of 101 or Higher, Coldness, Increased Cinthya n, Numbness or Tingling, Inability to urinate, Inability to have a bowel movement, Using more than 1 pad per hour, Shortness of breath, Dizziness, Fainting spells, Swelling in the ankles, Chest pain, Increased palpitations (irregular heartbeat), Calf discomfort and Uncontrolled pain Follow Up Care Please Follow Up With: Kvng When: 1 week Test Results: Test results from this visit will be discussed in further detail at your follow-up appointment, if applicable. Discharge Plan Admission Primary Reason for Your Visit: Surgery Attending Provider: Marielle Calderon Primary Care Provider: Evi Prather Discharge Orders/Prescriptions Prescriptions: New ibuprofen 800 mg tablet 800 mg PO Q8H PRN (Reason: pain) Qty: 30 RF: 0 Continued montelukast 10 MG tablet 10 mg PO DAILY RF: 0 hydrochlorothiazide 25 MG tablet 25 mg PO DAILY RF: 0 propranolol 20 MG tablet 40 mg PO BID RF: 0 rizatriptan 10 MG tablet 10 mg PO .X1 PRN RF: 0 tramadol 50 MG tablet 50 mg PO Q6H PRN PRN (Reason: Pain) RF: 0 albuterol sulfate [Ventolin HFA] 1 PUFF inhaler 1 puff inhalation Q6H PRN PRN (Reason: ASTHMA) RF: 0 ondansetron 4 MG tablet 4 mg PO Q8H PRN PRN (Reason: Nausea) RF: 0 topiramate 100 MG tablet 50 mg PO 0800 RF: 0 topiramate 100 MG tablet 50 mg PO QHS RF: 0 escitalopram oxalate [Lexapro] 10 MG tablet 15 mg PO DAILY RF: 0 doxycycline hyclate 100 MG tablet 100 mg PO BID RF: 0 multivitamin Tablet 1 tab PO DAILY RF: 0 tizanidine 2 mg tablet 2 mg PO QHS RF: 0 trazodone 50 mg tablet 50 mg PO QHS RF: 0 ibuprofen 800 mg tablet 800 mg PO PRN PRN (Reason: Pain) RF: 0 potassium chloride 8 mEq tablet extended release 8 meq PO DAILY RF: 0 pantoprazole 40 mg tablet,delayed release (DR/EC) 40 mg PO DAILY RF: 0 gabapentin 300 mg capsule 300 mg PO BID RF: 0 ferrous gluconate 324 mg (38 mg iron) tablet 324 mg PO DAILY RF: 0 Nurtec ODT 75 mg tablet,disintegrating 75 mg PO PRN PRN (Reason: MIGRAINES) RF: 0 Referrals / Follow Up: Evi Prather DO [Primary Care Provider] - Disposition Disposition (needs filled in before D/C Order can be placed): Home, Self Care
[2021-02-05] MEDS: Lidocaine 1% (20 ml mdv) 20 ML Vial (12:51)
--- NOTE | 2021-02-05 13:10 | OP.PCM_ITS ---
Report of Operation Date of Procedure: 02/05/21 Pre-Operative Diagnosis: DUB, menorrhagia, uterine fibroid on pelvic ultrasound Post-Operative Diagnosis: DUB, menorrhagia Surgery/Procedure Performed:: Hysteroscopy, D&C, Leni uterine ablation Description of Surgical Findings:: Normal-appearing uterine cavity and bilateral tubal ostia were visualized. There were no polyps or fibroids noted. Some descent of uterus and cervix. Surgeon: Kvng brazing machine operator: None Type of Anesthesia: MAC/Supplemental/Local Special Medications: None Specimen's removed: Endometrial curettings Drains: None Estimated Blood Loss (mL): < 50 cc Fluids Replaced: 0 cc fluid deficit Description of Procedure: The patient was taken to the operating room where MAC anesthesia was found to be adequate. She was prepped and draped in the dorsal lithotomy just using yellowfin stirrups. A weighted speculum was placed in the vagina to expose the cervix. The anterior lip of the cervix was grasped with single-tooth tenaculum. Using local a paracervical block was administered using 5 cc. The cervix was serially dilated to accommodate the hysteroscope. The hysteroscope was introduced to the fundus of the uterus and distended with normal saline. The uterine cavity was normal-appearing and bilateral tubal ostia were visualized. There were no fibroids or polyps noted. The hysteroscope was then removed. A sharp curettage was performed for a small amount of tissue. The tissue was sent to the pathologist for review. Uterus sounded to 9.5 cm. The cervical length was 3 cm. The Leni device was set to a cavity length of 6.5 cm. The Leni device rep was present in the operating room for the procedure. The Leni device was deployed within the uterine cavity in normal sterile fashion. The cavity assessment was passed. After the cavity assessment was passed, the device was activated. Once activation was complete, the device was removed from the uterus. All instruments were removed from the vagina. Bleeding was hemostatic. The patient was taken to the recovery room in stable condition. Instrument, needle, sponge counts were correct. Grafts/Implants Used: None Procedure Start Time: 12:51 Procedure Stop Time: 13:10 Complications None Admit VTE Documentation VTE Present on Admission: No VTE Mechan Device Prophylaxis: SCD's VTE Pharm Prophylaxis ordered?: No
[2021-02-05] MEDS: HYDROcodone Bitartrate/Apap 5/325 Tablet PO (14:35)
== END 2021-02-05 15:19 | disposition home or self-care (01) ==
LOC: SDC 10:00 → AC 10:01
PROVIDERS: PCP Family Medicine; Referring Provider Obstetrics & Gynecology; Visit Provider Obstetrics & Gynecology
PROC: 0UB98ZZ Excision of Uterus, Via Natural or Artificial Opening Endoscopic (ICD-10-PCS; CPT 58558; principal; 2021-02-05 11:15)
DX: D25.9 Leiomyoma of uterus, unspecified (principal); N93.8 Other specified abnormal uterine and vaginal bleeding; N92.0 Excessive and frequent menstruation with regular cycle; F41.9 Anxiety disorder, unspecified; M19.90 Unspecified osteoarthritis, unspecified site; J45.909 Unspecified asthma, uncomplicated; F32.A Depression, unspecified; M79.7 Fibromyalgia; D64.9 Anemia, unspecified; K21.9 Gastro-esophageal reflux disease without esophagitis; Z79.899 Other long term (current) drug therapy; G47.30 Sleep apnea, unspecified; I10 Essential (primary) hypertension
CPT/HCPCS: 00952; 58563; 81025; 85027; 88305; J7120

== ENCOUNTER 2021-04-15 18:15 | Outpatient (CLI) | payer MEDICAID, SELFPAY ==
[2021-04-15] MEDS: 0.9% Saline Lock 10 ML Syringe IV (18:34)
[2021-04-15 18:38] VITALS: BP 146/90; PULSE 73; RESP 16; TEMP 37.1; O2SAT 100; BMI 37.4
[2021-04-15 19:16] VITALS: BP 127/83; PULSE 56; RESP 16; TEMP 36.8; O2SAT 99
[2021-04-15 20:06] VITALS: BP 138/85; PULSE 56; RESP 16; TEMP 36.3; O2SAT 100
== END 2021-04-15 23:59 | disposition home or self-care (01) ==
LOC: MS3OUT 18:15 → MS3 18:16
PROVIDERS: PCP Family Medicine; Referring Provider Nurse Practitioner Adult Health; Visit Provider Nurse Practitioner Adult Health
DX: Z23 Encounter for immunization (principal); U07.1 COVID-19; I10 Essential (primary) hypertension; J45.909 Unspecified asthma, uncomplicated
CPT/HCPCS: J7050; M0245; Q0245; A4216

== ENCOUNTER 2021-04-22 13:05 | Emergency (ER) | payer MEDICAID, SELFPAY ==
[2021-04-22 13:06] VITALS: BP 147/89; PULSE 69; RESP 16; TEMP 36.3; O2SAT 100; BMI 33.4
--- NOTE | 2021-04-22 13:13 | CM.ED ---
Social Work Telephone call from crisis, Marielle patient has already been assessed and is coming to [facility] ER for medical clearance. Per crisis patient had pills in mouth and friend got them out. Marielle reports interrupted suicide attempt. Will continue to follow as needed Lawson OLIVA, JACK
--- NOTE | 2021-04-22 13:19 | EDS_ITS ---
HPI HPI - Psych History of Present Illness Chief Complaint: Suicidal Informant: patient Narrative Narrative: Patient was sent by crisis for medical screening. She has had worsening depression. She does have history of psychiatric illness and depression since she was quite young and is taking her meds. Depression has been getting worse. She has been having thoughts of suicide. She is thought of overdosing on her meds specifically trazodone. About 4 days ago, she put a handful of trazodone in her mouth but did not swallow them. She states a friend was there and really knocked them out of her mouth. She did not swallow any. Patient has had multiple increases in stress recently. She has evidently about 2 children who are raised by their father. She has another child who was recently taken by child services and put into the custody of their father just around [place] time. She just found out yesterday that she is going to get supervised visitation rights only. She feels somewhat useless. She feels she needs help. She has never been admitted psychiatrically. She has attempted suicide in the past but never told anyone. She has attempted with prior overdoses. The only recent 1 is as stated above. Patient also was recently diagnosed with Covid. Her symptoms started on the ninth of this month. Her first test was negative then she had a positive test. She was on steroids as well as received monoclonal antibody therapy on the of this month. Prednisone just finished. She states the symptoms are much better. She is not having the coughing now. She has a slight runny nose only. She has no nausea vomiting. She feels as though she is really recovered from that. [facility] Medical History Anemia Anxiety Arthritis Asthma Back pain Depression Fibromyalgia Gastric reflux History of IBS History of pain when walking History of steroid therapy Hx of fracture of wrist Hypertension Left ankle sprain Leg cramps Migraine headache Sleep apnea Sprain of left foot Wears contact lenses Home Medications hydrochlorothiazide 25 mg PO DAILY 03/01/13 [History Last Taken Unknown] montelukast 10 mg PO DAILY 03/01/13 [History Last Taken 03/13/15 08:30] propranolol 40 mg PO BID 03/01/13 [History Last Taken 02/05/21] rizatriptan 10 mg PO .X1 PRN 06/14/13 [History Last Taken Unknown] albuterol sulfate [Ventolin HFA] 1 puff INHALATION Q6H PRN PRN 03/10/15 [History Last Taken Unknown] tramadol 50 mg PO Q6H PRN PRN 03/10/15 [History Last Taken 03/13/15 09:30] escitalopram oxalate [Lexapro] 15 mg PO DAILY 04/28/19 [History Last Taken Unknown] ondansetron 4 mg PO Q8H PRN PRN 04/28/19 [History Last Taken Unknown] topiramate 50 mg PO 0800 04/28/19 [History Last Taken 02/05/21] topiramate 50 mg PO QHS 04/28/19 [History Last Taken Unknown] ferrous gluconate 324 mg PO DAILY 01/29/21 [History Last Taken Unknown] gabapentin 300 mg PO BID 01/29/21 [History Last Taken 02/05/21] multivitamin 1 tab PO DAILY 01/29/21 [History Last Taken Unknown] pantoprazole 40 mg PO DAILY 01/29/21 [History Last Taken 02/05/21] potassium chloride 8 meq PO DAILY 01/29/21 [History Last Taken Unknown] tizanidine 2 mg PO QHS 01/29/21 [History Last Taken Unknown] trazodone 50 mg PO QHS 01/29/21 [History Last Taken Unknown] ibuprofen 800 mg PO Q8H PRN #30 tab 02/05/21 [Rx Last Taken Unknown] cholecalciferol (vitamin D3) [Vitamin D3] 125 mcg PO DAILY 04/15/21 [History Last Taken Unknown] dexamethasone 6 mg PO DAILY 04/15/21 [History Last Taken Unknown] Allergy/AdvReac Type Severity Reaction Status Date / Time black eyed peas Allergy Food Uncoded 04/22/21 13:13 Allergy Surgical History Hx of section Hx of tubal ligation Social History Smoking Status: Never smoker ROS ROS ED Constitutional Constitutional ED: Denies fever(s) or subjective Eyes Eyes: Denies blurry vision or change in vision ENT ENT ED: Reports rhinorrhea; Denies sore throat Cardiovascular Cardiovascular: Reports other Details: She occasionally gets racing heartbeat with anxiety but is not having it now. ; Denies chest pain or palpitations Respiratory/Chest Respiratory/Chest: Reports other Details: Pulmonary symptoms are really resolved from Covid ; Denies cough, dyspnea or sputum Gastrointestinal Gastrointestinal: Denies diarrhea, nausea or vomiting Genitourinary Genitourinary ED: Denies dysuria Musculoskeletal Musculoskeletal: Denies arthralgias or myalgias Integumentary Denies rash Neurologic Neurologic: Denies headache(s) or weakness Psychiatric Psychiatric: Reports anxiety, depression, suicidal ideation and suicidal thoughts Endocrine Endocrinology: Denies polyuria Hematologic/Lymphatic Hematologic/Lymphatic: Denies easy bleeding or easy bruising Allergic/Immunologic Allergic/Immunologic ED: Denies mouth swelling or urticaria EXAM Physical Exam Const Vital Signs: 04/22/21 13:06 Temperature 97.3 F L Temperature Source Temporal Pulse Rate 69 Respiratory Rate 16 Blood Pressure 147/89 H Blood Pressure Mean 108 Pulse Ox 100 Oxygen Delivery Method Room Air Positive well nourished and well developed General Appearance ED: well developed and NAD HEENT Reports moist mucous membranes normocephalic Eyes General Eye ED: Negative for pale conjunctiva or scleral icterus Neck no JVD Resp normal respiratory effort and clear to auscultation bilaterally Auscultation: Negative for rales, rhonchi or wheezes Cardio Rate: regular rate Rhythm: regular rhythm GI non-tender, non-distended and no masses Auscultation: normoactive bowel sounds Palpation: soft Back/Spine no CVA tenderness Extremity normal to inspection General Extremety ED: Negative for edema or tenderness General Extremity: Negative for edema Neuro oriented x3 Sensorium / Orientation: alert Psych mental status grossly normal Psych Narrative: Patient has reasonable insight. She does have a mildly depressed affect. No sign of paranoia. She does admit to suicidal thoughts. She also admits that she wants help. She states she does not feel like herself and really wants to feel better. She is very cooperative. Skin Lesions: no lesions Rashes: no rashes MDM MDM MDM Narrative Medical decision making narrative: CBC is normal. Electrolytes are overall normal other than minimal dehydration. Tox is positive for cannabis. Alcohol is 7. Patient is medically cleared for psychiatric evaluation and admission if needed. She is being evaluated for placement at this time. Chest x-ray also showed no acute process. Lab Data Attestation: I reviewed the patient's lab results. Radiography Diagnostic Testing: Clinical Impression(s) from Imaging Studies Chest X-Ray 04/22/21 13:55 IMPRESSION: Normal x-ray examination of the chest. Electronically Signed: Jonny Schwab MD at 14:14 EST , EKG Initial EKG: Comments: EKG done as part of medical clearance read by me shows a normal sinus rhythm with overall rate of 64. No acute ST elevation or depression. No ectopy. DC interval, QRS duration and QTc are normal. Discharge Plan Triage Chief Complaint: Suicidal ED Provider: Anish Chavarria Dx/Rx/DC Orders Clinical Impression: Suicidal ideation, Major depression Prescriptions: No Action montelukast 10 MG tablet 10 mg PO DAILY RF: 0 hydrochlorothiazide 25 MG tablet 25 mg PO DAILY RF: 0 propranolol 20 MG tablet 40 mg PO BID RF: 0 rizatriptan 10 MG tablet 10 mg PO .X1 PRN RF: 0 tramadol 50 MG tablet 50 mg PO Q6H PRN PRN (Reason: Pain) RF: 0 albuterol sulfate [Ventolin HFA] 1 PUFF inhaler 1 puff inhalation Q6H PRN PRN (Reason: ASTHMA) RF: 0 ondansetron 4 MG tablet 4 mg PO Q8H PRN PRN (Reason: Nausea) RF: 0 topiramate 100 MG tablet 50 mg PO 0800 RF: 0 topiramate 100 MG tablet 50 mg PO QHS RF: 0 escitalopram oxalate [Lexapro] 10 MG tablet 15 mg PO DAILY RF: 0 multivitamin Tablet 1 tab PO DAILY RF: 0 tizanidine 2 mg tablet 2 mg PO QHS RF: 0 trazodone 50 mg tablet 50 mg PO QHS RF: 0 potassium chloride 8 mEq tablet extended release 8 meq PO DAILY RF: 0 pantoprazole 40 mg tablet,delayed release (DR/EC) 40 mg PO DAILY RF: 0 gabapentin 300 mg capsule 300 mg PO BID RF: 0 ferrous gluconate 324 mg (38 mg iron) tablet 324 mg PO DAILY RF: 0 ibuprofen 800 mg tablet 800 mg PO Q8H PRN (Reason: pain) Qty: 30 RF: 0 dexamethasone 6 mg Tablet 6 mg PO DAILY RF: 0 cholecalciferol (vitamin D3) [Vitamin D3] 125 mcg (5,000 unit) Tablet 125 mcg PO DAILY RF: 0 Primary Care Provider: Evi Prather Referrals: Evi Prather DO [Primary Care Provider] - Disposition Disposition: Psychiatric Hospital or Unit Discharge Location: [facility] Discharge Date/Time: 04/22/21 23:36
--- NOTE | 2021-04-22 13:26 | EKG12_ITS ---
Test Reason : SUICIDAL Blood Pressure : / mmHG Vent. Rate : 064 BPM Atrial Rate : 064 BPM P-R Int : 150 ms QRS Dur : 092 ms QT Int : 416 ms P-R-T Axes : 055 033 032 degrees QTc Int : 429 ms Normal sinus rhythm Normal ECG Confirmed by ANTWON BATISTA, DEMAR ([id number]), society editor KATHY JACKSON ([id number]) on 04/24/2021 1:10:47 PM Referred By: PL Confirmed By:BOO KAPOOR MD
--- NOTE | 2021-04-22 13:55 | RAD_ITS ---
STUDY: X-RAY CHEST REASON FOR EXAM: Female, 45 years old. covid followup TECHNIQUE: Single AP portable view of the chest. COMPARISON: Comparison is made with prior study dated 06/15/2018. FINDINGS: The lungs are clear and expanded. There is no demonstrated pleural abnormality. Normal size heart. Normal mediastinum and wilmer. Normal visualized pulmonary arteries. Normal visualized aortic arch and descending thoracic aorta. Normal visualized thoracic spine. Normal visualized ribs, clavicles, and shoulders. There is no demonstrated abnormality of the visualized soft tissue structures of the upper abdomen. RAD/Chest 1 View (Portable) IMPRESSION: Normal x-ray examination of the chest. Electronically Signed: Jonny Schwab MD at 14:14 EST ,
[2021-04-22 14:23] LABS: Absolute Lymphocyte Count 3.01 X10^3/uL (0.83-4.51); Absolute Neutrophil Count 6.9 X10^3/uL (2.0-7.7); Basophil# 0.06 X10^3/uL; Basophil% 0.6 % (0-1); Eosinophil# 0.19 X10^3/uL; Eosinophils% 1.8 % (0-5); Hematocrit 43.2 % (37-47); Hemoglobin 14.5 g/dL (12.0-15.0); Lymphocyte # 3.01 X10^3/ul (0.83-4.51); Mean Corp Hgb Conc 33.6 g/dL (32-36); Mean Corpuscular Hgb 30.3 pg (27.0-32.0); Mean Corpuscular Volume 90.4 fL (81-99); Mean Platelet Vol. 9.5 fl (6.2-12.0); Monocyte# 0.49 X10^3/uL; Monocyte% 4.6 % (0-10); NRBC Flagged by Analyzer 0 % (0-5); Neutrophil # 6.93 X10^3/uL (2.7-7.7); Neutrophil % 64.3 % (47-70); Platelet Count 262 K/mm3 (150-450); Red Blood Count 4.78 M/mm3 (4.2-5.4); White Blood Count 10.8 K/mm3 (4.4-11.0)
[2021-04-22 15:06] LABS: Internal QC Validated? YES +Cl - CLEAR BKGD; Pregnancy, Serum, hCG Quali. NEGATIVE Negative
[2021-04-22 15:40] LABS: Amphetamine Urine VISTA NEGATIVE (<1000 ng/mL); Barbiturate Urine VISTA NEGATIVE (< 200 ng/mL); Benzodiazepine Urine VISTA NEGATIVE (< 200 ng/mL); Cocaine Urine VISTA NEGATIVE (< 300 ng/mL); Ecstacy Urine VISTA NEGATIVE (< 500 ng/mL); Methadone Urine VISTA NEGATIVE (< 300 ng/mL); PCP Urine VISTA NEGATIVE (< 25 ng/mL); THC Urine VISTA POSITIVE (< 50 ng/mL); Vista UDS pH Range 6
[2021-04-22 15:45] LABS: Anion Gap 7 (5-15); BUN 17 mg/dL (7-18); BUN/Creat Ratio 20.5 RATIO (10-20); Calcium,Total 8.7 mg/dL (8.5-10.1); Chloride 105 mmol/L (98-107); Creatinine, Serum 0.83 mg/dL (0.55-1.02); EST Glomerular Filtration Rate 79 mL/min (>60); Est Glom Filt Rate - Afr Amer 96 mL/min (>60); Estimated Creatinine Clearance 87.25 ml/min; Glucose 85 mg/dL (74-106); Potassium 3.6 mmol/L (3.5-5.1); Sodium Level 140 mmol/L (136-145)
--- NOTE | 2021-04-22 16:28 | CM.ED ---
Social Work Telephone call to Marielle bain. This social security assessor confirmed fax number and [facility]ed [facility] crisis to begin facilitating psychiatric placement. Will continue to follow. Lawson OLIVA, JACK
--- NOTE | 2021-04-22 17:08 | CM.ED ---
Social Work Telephone call from Marielle bain. Marielle reports that patient is pending approval at [facility]. Will continue to follow. Lawson OLIVA, PARKERS
[2021-04-22 18:38] VITALS: BP 125/66; PULSE 66; RESP 14; O2SAT 98
--- NOTE | 2021-04-22 19:39 | CM.ED ---
Social Work Telephone call to crisis, no update on referral. Continues to be pending [place]. Lawson Keith MSW, PARKERS
--- NOTE | 2021-04-22 20:06 | CM.ED ---
Social Work Telephone call from [place]ia bain. Patient has been accepted to [facility] to the adult unit. Nurse to call report to [phone]. Patient [address] by Dr. Castano. Medical team and patient updated. [place] slip faxed to [facility] per crisis request along with EKG. PLAN: Discharge to [facility]. Lawson OLIVA, PARKERS
[2021-04-22 22:07] VITALS: BP 153/94; PULSE 69; RESP 16; TEMP 36.8; O2SAT 98
[2021-04-22 22:57] VITALS: RESP 18
[2021-04-22 23:00] VITALS: RESP 17
== END 2021-04-22 23:36 ==
PROVIDERS: Emergency Provider Emergency Medicine; PCP Family Medicine; Visit Provider Emergency Medicine
DX: F32.9 Major depressive disorder, single episode, unspecified (principal); R45.851 Suicidal ideations; E86.0 Dehydration; I10 Essential (primary) hypertension; Z91.51 Personal history of suicidal behavior; Z86.16 Personal history of COVID-19; M19.90 Unspecified osteoarthritis, unspecified site; F41.9 Anxiety disorder, unspecified; M79.7 Fibromyalgia; K21.9 Gastro-esophageal reflux disease without esophagitis; G47.30 Sleep apnea, unspecified; D64.9 Anemia, unspecified; Z79.899 Other long term (current) drug therapy
CPT/HCPCS: 36415; 71045; 80048; 80307; 82077; 84703; 85025; 87426; 93005; 99285

== ENCOUNTER 2021-07-01 13:00 | Outpatient (RCR) | payer MEDICAID, SELFPAY ==
--- NOTE | 2021-06-10 10:32 | HP.PTEVAL ---
Patient's Visit Information BALA KLEIN is a 45 year old F referred to Physical Therapy by Dr. Willie Rosario DPM with a diagnosis of Left Ankle Sprain. Date of Evaluation: 06/10/21 Physical Therapist: Billie Abreu DPT - Visit Plan Frequency: 2x /Week Duration: 4 Weeks Plan: Aquatic Therapy- focus on LE and core strength/stabilization, proprioception and functional mobility. HEP Given IE: ankle DF/PF, Inv/Ever, Circles, Alphabet, Gastroc Stretch with towel and weight shifting. - Subjective Patient reports that she hurt her foot and ankle in December- she fell- she had a boot and they wanted her to go to PT but due to circumstances she could not get here- so she did not get here. She is now having more pain and decided that she needed to see PT. Patient reports that the pain is along the medial arch and across the back of the foot and radiates to the 5th met and across the joint line. She knows that she needs new shoes but she doesn't feel like it helps a lot. 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 She has had x-rays which were negative. Describes the pain as dull and achy- with no N/T due to her neuropathy. She takes Gabapentin for her neuropathy. Worst: 11/04, Agg: walking, standing, stooping, grocery store. Eases: propping it up, taking Ibuprofen/Tramadol Best: 06/04. No pain that radiates up to the knee. She has not been back to see the MD since the pain has started again. Sleep: disturbed- hard to get to sleep- does take meds to help stay asleep. Normally pretty active- works 9-6:30 at night- standing all day. PMHx/Meds: Wellburtin, Trazadone, Lexipro, Prezosin- those have changed. - Objective Posture: FH, RS- can correct with verbal cues but does not maintain. Gait: antalgic-decreased stance on the left LE with poor heel/toe pattern- toes turned out to the side. HR/TR: able with weight shift more towards right- reports discomfort. SLS: unable to SLS without UE A- reports pain and instability. Girth: Malls:29 cm Figure 8: 56cm. Strength: Ankle: DF:17.4 PF19.6 Inv: 9.6, Ever: 18.5. ROM: WFL the the exception of DF: neutral- all with pain. Flex: Gastroc: severe, Soleus: severe - Balance/Special Test Scores Lower Extremity Functional Score: 30 - Goals Goal 1:: Patient will be I with HEP and progression Goal Time Frame: 4-6 Weeks Goal 2:: Patient will SLS for 30 sec without LOB or pain Goal Time Frame: 4-6 Weeks Goal 3:: Patient will ambulate >300 feet with a normalized gait pattern Goal Time Frame: 4-6 Weeks Goal 4:: Patient will subjectively report 80% improvement. Goal Time Frame: 4-6 Weeks - Rehabilitation Potential Physical Therapy Diagnosis: Patient presents with hypomobility s/p ankle sprain- she has decreased pain free ROM, LE and core strength/stabilization, proprioception, flex and muscular endurance leading to poor balance, abnormal gait and increased pain with functional mobility. Rehabilitation Potential: Good - Anticipated Interventions Patient/Client Instruction: Educate patient on: Benefits of Fitness Program Therapeutic Exercise to Include: Strength training, Power training, Balance training, Coordination, Agility training, Body mechanics, Postural training, Flexibilty training, Gait and locomotor training, Neuromotor development, In an aquatic setting, Dynamic Lumbar Stabilization, Scapular Strength/Stabilization For the Purpose of:: To improve muscle performance and motor function TENS: Yes Cryotherapy (ice pack, ice massage): Yes Thermo therapy (hot pack): Yes Ultrasound (thermal/non thermal): Yes Thank you for the opportunity to evaluate your patient. For Medicare and Medicare HMO plans, please review the plan of care and approve it. It will need to be FAXED BACK to us at [phone] for Medicare purposes. For Medicare only, by signing this I certify the plan of care. Please let me know if there are questions or concerns regarding this plan of care. Physician Signature: Date:
--- NOTE | 2021-09-10 14:30 | HP.PT.NRP ---
BALA KLEIN was seen in my office for initial evaluation on 06/10/21. The following Plan of Care was established for this patient: Initial Frequency: 2x /Week Initial Duration: 4 Weeks Patient/Client Instruction: Educate patient on: Benefits of Fitness Program Therapeutic Exercise to Include: Strength training, Power training, Balance training, Coordination, Agility training, Body mechanics, Postural training, Flexibilty training, Gait and locomotor training, Neuromotor development, In an aquatic setting, Dynamic Lumbar Stabilization, Scapular Strength/Stabilization For the Purpose of:: To improve muscle performance and motor function TENS: Yes Cryotherapy (ice pack, ice massage): Yes Thermo therapy (hot pack): Yes Ultrasound (thermal/non thermal): Yes This patient was last seen in our office . Pertinent comments regarding their Physical therapy will appear below: Patient has not attended PT in over 30 days- appropriate to be d/c and return to MD for further evaluation as needed. At this point I will be discontinuing this patient from physical therapy. I would be happy to see this patient again in the future if found appropriate by the physician. Thank you! Billie Abreu, YUET Balance/Gait/Functional tests - Balance/Special Test Scores Lower Extremity Functional Score: 30
== END 2021-07-01 19:00 | disposition home or self-care (01) ==
LOC: PT 13:00
PROVIDERS: PCP Family Medicine; Referring Provider Student in an Organized Health Care Education/Training Program; Visit Provider Student in an Organized Health Care Education/Training Program
DX: S93.402D Sprain of unspecified ligament of left ankle, subsequent encounter (principal)
CPT/HCPCS: 97113; 97162

== ENCOUNTER → 2021-11-11 | Outpatient (CLI) | payer MEDICAID, SELFPAY | END | disposition home or self-care (01) | LOC: LABSPEC 15:32 | PROVIDERS: PCP Family Medicine; Visit Provider Family Medicine | DX: R30.0 Dysuria (principal) | CPT/HCPCS: 87077; 87086; 87088; 87186 ==

== ENCOUNTER 2023-11-11 12:06 | Emergency (ER) | payer MEDICAID, SELFPAY ==
[2023-11-11 12:06] VITALS: BP 121/91; PULSE 70; RESP 14; TEMP 36.6; O2SAT 98
[2023-11-11 12:30] VITALS: BMI 38.3
--- NOTE | 2023-11-11 12:42 | EDS_ITS ---
HPI History of Present Illness Chief Complaint: Lower Extremity Injury Informant: patient Narrative Narrative: 48-year-old female presenting to the emergency room with a chief complaint of left leg pain. Patient states that yesterday she tried jumping over the couch but did not make it. She states she went into the splits is unsure of exactly how she landed. She notes pain posteriorly of the lower left leg extending down to the heel and somewhat on the plantar surface of the foot. She denies any other injuries. She denies any focal swelling. Painful ambulation [facility] Medical History Wears contact lenses Depression Anxiety History of steroid therapy Arthritis Anemia Back pain Migraine headache History of IBS Gastric reflux Sleep apnea Asthma Leg cramps Fibromyalgia History of pain when walking Hypertension Hx of fracture of wrist Sprain of left foot Left ankle sprain Home Medications ?Medication ?Instructions ?Recorded ?Last Taken ?Type hydrochlorothiazide 25 mg tablet 25 mg PO DAILY 03/01/13 Unknown History montelukast 10 mg tablet 10 mg PO DAILY 03/01/13 03/13/15 08:30 History propranolol 20 mg tablet 40 mg PO BID 03/01/13 02/05/21 History rizatriptan 10 mg tablet 10 mg PO .X1 PRN 06/14/13 Unknown History albuterol sulfate 90 mcg/actuation 1 puff inhalation Q6H PRN PRN 03/10/15 Unknown History aerosol inhaler (Ventolin HFA) ASTHMA tramadol 50 mg tablet 50 mg PO Q6H PRN PRN Pain 03/10/15 03/13/15 09:30 History escitalopram oxalate 10 mg tablet 15 mg PO DAILY 04/28/19 Unknown History (Lexapro) ondansetron 4 mg disintegrating 4 mg PO Q8H PRN PRN Nausea 04/28/19 Unknown History tablet topiramate 100 mg tablet 50 mg PO 0800 04/28/19 02/05/21 History topiramate 100 mg tablet 50 mg PO QHS 04/28/19 Unknown History ferrous gluconate 324 mg (38 mg 324 mg PO DAILY 01/29/21 Unknown History iron) tablet gabapentin 300 mg capsule 300 mg PO BID 01/29/21 02/05/21 History multivitamin 1 tab PO DAILY 01/29/21 Unknown History pantoprazole 40 mg tablet,delayed 40 mg PO DAILY 01/29/21 02/05/21 History release potassium chloride 8 mEq 8 meq PO DAILY 01/29/21 Unknown History tablet,extended release tizanidine 2 mg tablet 2 mg PO QHS 01/29/21 Unknown History trazodone 50 mg tablet 50 mg PO QHS 01/29/21 Unknown History ibuprofen 800 mg tablet 800 mg PO Q8H PRN pain #30 tabs 02/05/21 Unknown Rx cholecalciferol (vitamin D3) 125 125 mcg PO DAILY 04/15/21 Unknown History mcg (5,000 unit) tablet (Vitamin D3) dexamethasone 6 mg tablet 6 mg PO DAILY 04/15/21 Unknown History Allergy/AdvReac Type Severity Reaction Status Date / Time Food Allergies: Uncoded Allergy Other Verified 11/11/23 12:07 Surgical History Hx of tubal ligation Hx of section Social History Smoking Status: Current every day smoker tobacco type: e-cigarettes ROS ROS ED Constitutional Constitutional ED: Denies chills, fever(s) or weight loss Eyes Eyes: Denies change in vision or diplopia ENT ENT ED: Denies ear pain, rhinorrhea or sore throat Cardiovascular Cardiovascular: Denies chest pain, orthopnea, palpitations or racing heartbeat Respiratory/Chest Respiratory/Chest: Denies cough, dyspnea or orthopnea Gastrointestinal Gastrointestinal: Denies abdominal pain, diarrhea, nausea or vomiting Genitourinary Genitourinary ED: Denies dysuria, hematuria or urinary frequency Musculoskeletal Musculoskeletal: Reports other Details: Left leg pain ; Denies arthralgias or myalgias Integumentary Denies abscess or rash Neurologic Neurologic: Denies headache(s) or weakness Psychiatric Psychiatric: Denies anxiety, depression, suicidal ideation or suicidal thoughts Endocrine Endocrinology: Denies polydipsia, polyphagia or polyuria Allergic/Immunologic Allergic/Immunologic ED: Denies mouth swelling, tongue swelling or urticaria EXAM Physical Exam Const Vital Signs: 11/11/23 12:06 Temperature 98 F Temperature Source Temporal Pulse Rate 70 Respiratory Rate 14 Blood Pressure 121/91 H Blood Pressure Mean 101 Pulse Ox 98 Oxygen Delivery Method Room Air Positive well nourished and well developed General Appearance ED: well developed and NAD HEENT Reports normocephalic, head/scalp atraumatic and moist mucous membranes Eyes PERRL and EOMs intact bilaterally Neck full ROM, no lymphadenopathy, supple and no JVD Resp normal respiratory effort and clear to auscultation bilaterally Cardio regular rate, regular rhythm and no murmurs GI normal to inspection, nondistended, normoactive bowel sounds and non-tender Palpation: soft Back/Spine no CVA tenderness and normal ROM Extremity Extremity Narrative: Patient has tender to palpation laterally along the fibula as well as posterior laterally calf musculature. The Achilles tendon palpates intact. She has normal inversion and eversion. Negative Sidhu's. Neurovascular intact distal. No obvious ecchymosis General Extremety ED: Negative for edema General Extremity: Negative for edema Neuro oriented x3 and CN's II-XII intact bilaterally Sensorium / Orientation: alert Motor Exam: strength 5/5 throughout Psych mental status grossly normal Mood & Affect: Negative for depressed or tearful Skin no rashes or lesions noted and no wounds MDM MDM MDM Narrative Medical decision making narrative: Differential diagnosis includes but not limited to sprain strain fracture tendon disruption My independent interpretation of the plain films of the left tib-fib there is no acute fracture. Clinically this is more of a muscle strain. Cannot rule out the possibility of his syndesmosis injury. Andrew Win wrap her ankle to limit flexion extension and inversion and eversion. Would recommend ice for the next 24 hours and then heat gentle stretching. Follow-up 10 to 14 days if not improved patient is comfortable with this plan. History & Record Review Discussion w/independent historian: Patient Radiography Diagnostic Testing: Clinical Impression(s) from Imaging Studies Tibia/Fibula X-Ray 11/11/23 12:50 IMPRESSION: Normal x-ray examination of the tibia and fibula. Electronically Signed: Jonny Schwab MD at 13:08 EDT , Discharge Plan Triage Chief Complaint: Lower Extremity Injury ED Provider: Hasmukh Elizabeth Dx/Rx/DC Orders Clinical Impression: Muscle strain of left lower extremity, Acute pain of left lower extremity, Fall Instructions: ED Muscle Strain, Extremity Prescriptions: No Action montelukast 10 MG tablet 10 mg PO DAILY hydrochlorothiazide 25 MG tablet 25 mg PO DAILY propranolol 20 MG tablet 40 mg PO BID rizatriptan 10 MG tablet 10 mg PO .X1 PRN tramadol 50 MG tablet 50 mg PO Q6H PRN PRN (Reason: Pain) albuterol sulfate [Ventolin HFA] 1 PUFF inhaler 1 puff inhalation Q6H PRN PRN (Reason: ASTHMA) ondansetron 4 MG tablet 4 mg PO Q8H PRN PRN (Reason: Nausea) topiramate 100 MG tablet 50 mg PO 0800 topiramate 100 MG tablet 50 mg PO QHS escitalopram oxalate [Lexapro] 10 MG tablet 15 mg PO DAILY multivitamin Tablet 1 tab PO DAILY tizanidine 2 mg tablet 2 mg PO QHS trazodone 50 mg tablet 50 mg PO QHS potassium chloride 8 mEq tablet extended release 8 meq PO DAILY pantoprazole 40 mg tablet,delayed release (DR/EC) 40 mg PO DAILY gabapentin 300 mg capsule 300 mg PO BID ferrous gluconate 324 mg (38 mg iron) tablet 324 mg PO DAILY ibuprofen 800 mg tablet 800 mg PO Q8H PRN (Reason: pain) Qty: 30 0RF dexamethasone 6 mg Tablet 6 mg PO DAILY cholecalciferol (vitamin D3) [Vitamin D3] 125 mcg (5,000 unit) Tablet 125 mcg PO DAILY Primary Care Provider: Evi Prather Referrals: Evi Prather DO [Primary Care Provider] - 10-14 Days if not better Print Language: Greenlandic Disposition Disposition: Home, Self Care
--- NOTE | 2023-11-11 12:50 | RAD_ITS ---
STUDY: X-RAY - LEFT TIBIA AND FIBULA REASON FOR EXAM: Female, 48 years old. Injury TECHNIQUE: 2 view(s) of the tibia and fibula were obtained. COMPARISON: None. FINDINGS: Normal visualized tibia. Normal visualized fibula. The soft tissue structures are unremarkable. RAD/Tibia & Fibula 2 Views IMPRESSION: Normal x-ray examination of the tibia and fibula. Electronically Signed: Jonny Schwab MD at 13:08 EDT ,
[2023-11-11 13:46] VITALS: BP 129/75; PULSE 76; RESP 18; TEMP 36.7; O2SAT 97
== END 2023-11-11 13:48 | disposition home or self-care (01) ==
PROVIDERS: Emergency Provider Emergency Medicine; PCP Family Medicine; Visit Provider Emergency Medicine
DX: S86.912A Strain of unspecified muscle(s) and tendon(s) at lower leg level, left leg, initial encounter (principal); M79.605 Pain in left leg; I10 Essential (primary) hypertension; X58.XXXA Exposure to other specified factors, initial encounter; Y93.89 Activity, other specified; Z79.899 Other long term (current) drug therapy; G43.909 Migraine, unspecified, not intractable, without status migrainosus; F32.A Depression, unspecified; F41.9 Anxiety disorder, unspecified; K21.9 Gastro-esophageal reflux disease without esophagitis; F17.290 Nicotine dependence, other tobacco product, uncomplicated; Z98.51 Tubal ligation status
CPT/HCPCS: 73590; 99282

== ENCOUNTER 2024-01-09 14:02 | Outpatient (RCR) | payer MEDICAID, SELFPAY ==
--- NOTE | 2024-01-09 14:57 | HP.PTEVAL ---
Patient's Visit Information Visit Information Visit Information: BALA KLEIN is a 48 year old F referred to Physical Therapy by Dr. Willie Rosario DPM with a diagnosis of L ankle sprain. Date of Evaluation: 01/09/24 Physical Therapist: Markos Lozada DPT, OCS, CSCS Visit Plan Frequency: 2-3x /Week Duration: 4-6 Weeks Plan: 2-3x/week for 4-6 weeks for IE HEP: Ankle circles 20x, seated heel toe raises 20, towel toe curls 50x and gastroc stretch 30 4x all 2x/day and avoid aggravating activities/ excessiv epainful walking. Treat with manual therapy for PROm, STM gastroc and lateral ankle, mobs to ankle DF and get ankle moving. strengthening and proprioceptive exdercises to L ankle and progress to HEP gait training for walking US as needed laterally nonthermal if needed and ice. Subjective Subjective: Annelise Stepping off a [employer] lounge and did splits and got inversion high ankle sprain L. 3 months ago. Was in boot for 9 weeks and out of it2 weeks and it helped. Got brace but she does not like it. Wore it for a couple weeks.Pain now is worse after work or walking alot, 8/10 after work, Elevate adn relax improves it. Has sprained that ankle 3x. Overall 50%. Cannot walk long distances and usually loves to walk in fall. Sleep is OK for the most part, some pain at times. Has FM. 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 Better with scooter. Basic ADLS are getting done, painful some times exercises: basic ROM. residential exercises: stretching for FM. Hobbies: coloring and can do them. Hysterectomy in a month Pain Lankle: Pain Intensity (Out of 10): 0 Pain Intensity Range: 0 and 8 Objective Objective: Walks into PT with L antalgia slightly avoiding pushoff and DF position. I with gait and trasers chair and bed. Steps using R only , can do L but painful and requires rail. Tender L ankle laterally at ligaments and into achilles and calf moderately. AROM DF 2 on L vs 5 on R, PF 50 B, inversion painful L and 25 and eversion 10 and painful laterally. PROM painful into DF in achilles and gastroc and inversion end range laterally. - talar til today. SLS left is poor and painful at 2-3 seconds. reflexes 1/3 patella adn achilles B sensation LE WNL to gross light touch B LE strength painful but strong L inv, ev, DF, not plantarflexion. R is 4+ and no pain. L is 4-/5 all 4 Balance/Special Test Scores Functional Gait Assessment Score: 27 % Disability: 10.0000 Lower Extremity Functional Score: 16 Goals Goal 1:: Full aROM L ankle without pain Goal Time Frame: 4-6 Weeks Goal 2:: walk without antalgia Goal Time Frame: 4-6 Weeks Goal 3:: Pt feel ankle 75% back to normal and 1/10 pain at worst Goal Time Frame: 4-6 Weeks Goal 4:: LEFS 36 Goal Time Frame: 4-6 Weeks Goal 5:: I HEP to minimize future problems Goal Time Frame: 4-6 Weeks Rehabilitation Potential Physical Therapy Diagnosis: stiffness and weakness in L ankle limiting comfortable funciton Rehabilitation Potential: Fair Anticipated Interventions Patient/Client Instruction: Educate patient on: Condition and Plan of Care For the Purpose of:: To decrease pain, To increase ROM, To improve nutrient delivery to tissue, To improve muscle performance and motor function and To improve gait and locomotor functions Therapeutic Exercise to Include: Strength training, Balance training, Flexibilty training, Passive ROM and Active ROM For the Purpose of:: To decrease pain, To increase ROM, To improve nutrient delivery to tissue, To improve muscle performance and motor function, To increase tolerance to activity/condition/position and To improve gait and locomotor functions Manual Therapy Techniques to Include: Mobilization, Passive ROM and Soft tissue mobilization For the Purpose of:: To decrease pain, To increase ROM, To improve muscle performance and motor function and To improve gait and locomotor functions Cryotherapy (ice pack, ice massage): Yes Ultrasound (thermal/non thermal): Yes For the Purpose of:: To decrease pain, To decrease swelling/inflammation and To improve nutrient delivery to tissue Text: Thank you for the opportunity to evaluate your patient. For Medicare and Medicare HMO plans, please review the plan of care and approve it. It will need to be FAXED BACK to us at [phone] for Medicare purposes. For Medicare only, by signing this I certify the plan of care. Please let me know if there are questions or concerns regarding this plan of care. Physician Signature: Date:
--- NOTE | 2024-04-13 12:59 | HP.PT.NRP ---
Patient Information Patient Information: BALA KLEIN was seen in my office for initial evaluation on 01/09/24. The following Plan of Care was established for this patient: POC Established Initial Frequency: 2-3x /Week Initial Duration: 4-6 Weeks Anticipated Interventions Patient/Client Instruction: Educate patient on: Condition and Plan of Care For the Purpose of:: To decrease pain, To increase ROM, To improve nutrient delivery to tissue, To improve muscle performance and motor function and To improve gait and locomotor functions Therapeutic Exercise to Include: Strength training, Balance training, Flexibilty training, Passive ROM and Active ROM For the Purpose of:: To decrease pain, To increase ROM, To improve nutrient delivery to tissue, To improve muscle performance and motor function, To increase tolerance to activity/condition/position and To improve gait and locomotor functions Manual Therapy Techniques to Include: Mobilization, Passive ROM and Soft tissue mobilization For the Purpose of:: To decrease pain, To increase ROM, To improve muscle performance and motor function and To improve gait and locomotor functions Cryotherapy (ice pack, ice massage): Yes Ultrasound (thermal/non thermal): Yes For the Purpose of:: To decrease pain, To decrease swelling/inflammation and To improve nutrient delivery to tissue Last Seen Last Seen: This patient was last seen in our office 01/09/24. Pertinent comments regarding their Physical therapy will appear below: IE complete and POC established. Pt cancelled the remaining visits without rescheduling. At this point, it has been over 3 months and I will discontinue from my care. At this point I will be discontinuing this patient from physical therapy. I would be happy to see this patient again in the future if found appropriate by the physician. Thank you! Markos Lozada, DPT, OCS, CSCS Balance/Gait/Functional tests Balance/Special Test Scores Functional Gait Assessment Score: 27 % Disability: 10.0000 Lower Extremity Functional Score: 16
== END 2024-01-09 19:00 | disposition home or self-care (01) ==
LOC: PT 14:02
PROVIDERS: PCP Family Medicine; Referring Provider Student in an Organized Health Care Education/Training Program; Visit Provider Student in an Organized Health Care Education/Training Program
DX: S93.432D Sprain of tibiofibular ligament of left ankle, subsequent encounter
CPT/HCPCS: 97161

== ENCOUNTER 2024-02-10 09:00 | Day surgery (SDC) | payer MEDICAID, SELFPAY ==
--- NOTE | 2024-01-30 11:50 | EKG12_ITS ---
Test Reason : PRE OP Blood Pressure : */* mmHG Vent. Rate : 52 BPM Atrial Rate : 52 BPM P-R Int : 160 ms QRS Dur : 92 ms QT Int : 454 ms P-R-T Axes : 63 50 45 degrees QTcB Int : 422 ms Sinus bradycardia Low voltage QRS Borderline ECG Confirmed by Willie Lauren ([id number]), news video editor SULMA ALCAZAR ([id number]) on 01/31/2024 9:14:10 AM Referred By: Marielle Calderon Confirmed By: Willie Lauren
[2024-01-30 12:31] LABS: Hematocrit 41.9 % (37-47); Hemoglobin 14.1 g/dL (12.0-15.0); Mean Corp Hgb Conc 33.7 g/dL (32-36); Mean Corpuscular Hgb 29.9 pg (27.0-32.0); Platelet Count 191 K/mm3 (150-450); RBC Distribution Width CV 12.1 % (11.6-14.6); RBC Distribution Width SD 39.4 fl (35.1-43.9); Red Blood Count 4.71 M/mm3 (4.2-5.4); White Blood Count 6.5 K/mm3 (4.4-11.0)
[2024-01-30 12:43] LABS: Prothrombin Time (Protime)PT. 13.6 SECONDS (11.7-14.9)
[2024-01-30 12:44] LABS: Partial Thromboplast Time 26.3 Seconds (24.1-36.2)
[2024-01-30 13:26] LABS: AST(SGOT) 15 U/L (15-37); Alanine Aminotransfer ALT/SGPT 23 U/L (13-56); Albumin, Serum 3.7 g/dL (3.2-5.0); Alkaline Phosphatase 63 U/L (45-117); Bilirubin, Direct 0.11 mg/dL (0.00-0.30); Globulin 3.3 g/dL (2.2-4.2)
[2024-01-30 13:43] LABS: Magnesium 2.1 mg/dL (1.6-2.6)
[2024-01-31 08:39] LABS: Anion Gap 11 (5-15); BUN 15 mg/dL (7-18); BUN/Creat Ratio 14.9 RATIO (10-20); Calcium,Total 9.1 mg/dL (8.5-10.1); Chloride 104 mmol/L (98-107); Creatinine, Serum 1.01 mg/dL (0.55-1.02); EST Glomerular Filtration Rate 62 mL/min (>60); Est Glom Filt Rate - Afr Amer 75 mL/min (>60); Glucose 84 mg/dL (74-106); Potassium 3.4 mmol/L (3.5-5.1); Sodium Level 139 mmol/L (136-145)
[2024-02-10] VITALS (13 sets, daily range): BP systolic 97–128; BP diastolic 58–72; PULSE 49–67; RESP 10–18; TEMP 36–36.6; O2SAT 93–100; BMI 38.7
--- NOTE | 2024-02-10 | HYST_PTH ---
PATIENT: BALA KLEIN LOC: [facility] [place] U#:[id number] AGE/SX: 48/F ROOM: RE02/10/[address]: Dr. Marielle Calderon DO : 1975 BED: DIS: 02/10/2024 SPEC #: [id number] RECD: 02/10/24 16:52 STATUS: LEE REErika #: [id number] STEFANIA: 02/10/24 00:[address]: Marielle Calderon DEPT: SURGICAL PATHOLOGY RECD BY: German Campbell ENTERED: 02/13/24 08:00 SP TYPE: HYSTERECT OTHR DR: MD Dr. Evi Owens DO Tissues: Uterus, NOS Procedures: Surgery Specimen Level V HEADER OPERATION: Hysterectomy, TLH, bilateral salpingectomy, cystoscopy PRE-OP DIAGNOSIS: Abnormal uterine bleeding, irregular vaginal bleeding, history of endometrial ablation pelvic pain TISSUE SUBMITTED: Uterus, cervix, bilateral tubes MICROSCOPIC DIAGNOSIS Uterus, cervix, bilateral fallopian tubes, hysterectomy, bilateral salpingectomy: Cervix - Squamous metaplasia. Endometrium - Proliferative endometrium. Myometrium - Adenomyosis. Serosal surface - Mesothelial inclusion cysts. Bilateral fallopian tubes- No pathologic diagnosis. 02/14/2024 MICROSCOPIC DESCRIPTION Slides are reviewed. GROSS DESCRIPTION Received in fixative is one container labeled with the patient's name and designated uterus, cervix, bilateral tubes. The specimen consists of a hysterectomy specimen consisting of uterus with cervix and detached fallopian tubes. The uterus with cervix weighs 130 gm and measures 10.0 x 5.0 x 4.0 cm. The serosal surface shows small cysts. The largest cyst measuring 0.3cm in greatest dimension. The ectocervical mucosa is unremarkable. The external os is patent in contour. The endocervical canal measures 1.5 cm in length and the endocervical mucosa is unremarkable. The triangular endometrial cavity measures 3.0 cm in length and 1.0 cm in width. The endometrium is red and measures 0.1cm in thickness and no gross endometrial lesions. A myometrial lesion is not identified. Two detached fallopian tubes in the specimen container. One of the fallopian tube measures 3.3cm in length and 1.0cm in diameter. Fimbrial end is present. Fallopian tube shows no gross lesions. The second fallopian tube measures 3.5cm in length and 1.0cm in diameter. Fimbrial end is present. This fallopian tube shows focal hemorrhage. Presser Cotton Ginning sections are submitted in twelve cassettes as follows: 1 - serosal cysts, 2 - posterior cervix, 3- anterior cervix, 4-6 - posterior endomyometrium, 7-9- anterior endomyometrium, 10- one fallopian tube, 11-12- second fallopian tube. MJ: 02/13/2024 TC:5 CPT: 60818
[2024-02-10] MEDS: Lactated Ringers 1,000 ML 15 ML IV (09:33)
[2024-02-10] MEDS: Acetaminophen 500 MG Tablet 1000 MG PO ×2 (09:34→16:23)
[2024-02-10] MEDS: Celecoxib 200 MG Capsule 400 MG PO (09:34)
[2024-02-10] MEDS: Phenazopyridine 95 MG Tablet 190 MG PO (09:34)
[2024-02-10] MEDS: Enoxaparin 40 MG/0.4 ML Syringe SC (09:35)
[2024-02-10] MEDS: Magnesium 1 GM over 15 mins IV (09:35)
--- NOTE | 2024-02-10 09:57 | PRE.ANES_ITS ---
ASA Classification* ASA Classification ASA Classification: 2 Assessment & Plan Anesthesia* Anesthesia Assessment Anesthesia Assessment: Discussed sedation and/or anesthesia options, risks, benefits, and alternatives with patient/parents/legal guardian/POA. Questions invited. The patient/parents/legal guardian/POA seems to understand and agrees to proceed with anesthesia plan. Reviewed the physical assessment, medical history, allergy history and patient home medications list prior to surgery/procedure/anesthetic and documented any changes. Performed airway and anesthesia risk assessments. Anesthesia Type Anesthesia Type: General Anesthesia Focused Assessment* Temperature: 97.0 F Pulse Rate: 62 Blood Pressure: 128/65 Respiratory Rate: 16 Pulse Ox: 100 Airway Assessment Mouth opens: >3 cm Mallampati Score: II Focused Labs Anesthesia Preop lab: CBC WBC 6.5 K/mm3 (4.4-11.0) 01/30/24 11:48 RBC 4.71 M/mm3 (4.2-5.4) 01/30/24 11:48 Hgb 14.1 g/dL (12.0-15.0) 01/30/24 11:48 Hct 41.9 % (37-47) 01/30/24 11:48 Plt Count 191 K/mm3 (150-450) 01/30/24 11:48 CHEMISTRY Potassium 3.4 mmol/L (3.5-5.1) L 01/30/24 11:47 Sodium 139 mmol/L (136-145) 01/30/24 11:47 Magnesium 2.1 mg/dL (1.6-2.6) 01/30/24 11:48 BUN 15 mg/dL (7-18) 01/30/24 11:47 Creatinine 1.01 mg/dL (0.55-1.02) 01/30/24 11:47 Glucose 84 mg/dL (74-106) 01/30/24 11:47 TSH 1.73 uIU/mL (0.358-3.74) 11/13/15 07:52 COAG PT 13.6 SECONDS (11.7-14.9) 01/30/24 11:47 Urine Test Negative Negative 02/05/21 10:25 Pre-Assessment Diagnosis/Proposed Procedure Planned Operative Procedure(s): (B) Hysterectomy,TLH, bilateral salpingectomy, cystoscopy, ERAS Anesthesia History Anesthesia History - warehouse 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 When Was Last Pacemaker Check QUESTION #4 FULL TEXT: You/Your Family Experience fever (hyperthermia) with Anesthesia Last Oral Intake Last Oral intake: Last Oral Intake NPO since 07:00 02/10/24 09:29 Meds taken in AM with sips of Yes 02/10/24 09:29 water? Meds patient instructed to see medlist 02/10/24 09:29 take am of surgery PONV PONV - warehouse order filler: PONV - warehouse order filler Female Yes 01/27/24 11:12 HX of Motion Sickness Yes 01/27/24 11:12 HX of N/V After Surgery No 01/27/24 11:12 Non-Smoker Yes 01/27/24 11:12 Duration of Surgery greater Yes 01/27/24 11:12 than 60 minutes Number of Risk Factors 4 01/27/24 11:12 PONV Score Severe Risk 01/27/24 11:12 Height & Weight Height & Weight: Anesthesia: Height & Weight Height 5 ft 6 in 02/10/24 09:29 Weight: 109 kg 02/10/24 09:29 Body Mass Index (BMI) 38.7 02/10/24 09:29 Respiratory Assessment Respiratory Assessment - warehouse order filler: Respiratory Tract Infection Hx - warehouse order filler Hx Respiratory Tract Infection No 01/27/24 11:12 STOP Sleep Apnea STOP Sleep Apnea - warehouse order filler: STOP Sleep Apnea - warehouse order filler Hx Hypertension No 01/27/24 11:12 Hx Sleep Apnea Yes: LOST >100 PUNDS, DOESN' 01/27/24 11:12 T FEEL LIKE SHE NEEDS CPAP ANYMORE CPAP No 01/27/24 11:12 BIPAP No 01/27/24 11:12 Do you snore loudly (louder than talking or can be heard Do you often feel tired/ fatigued/ sleepy during daytime? Has anyone observed you stop breathing during sleep? STOP Results Positive 01/27/24 11:12 QUESTION #5 FULL TEXT : Do you snore loudly (louder than talking or can be heard through closed doors)? 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 Specify any problems Hx of Preganancy in last 3 No 01/27/24 11:12 Months Nurse Filling Out Transfusion [place] 01/27/24 11:12 & Questions: Date: 01/27/24 01/27/24 11:12 Time: 11:31 01/27/24 11:12 Patient unable to answer at this time (ie. confused, unrespo /Reproduction History /Reproductive History - warehouse order filler: /Reproductive Hx- warehouse order filler Hx Now Gestational Age (in weeks): EDC: Hx Hx Para Hx Section SAB No 11/11/23 12:06 Active Medications Active Medications: Current Medications Generic Name Dose Route Start Last Admin Trade Name Freq PRN Reason Stop Dose Admin Acetaminophen 1,000 mg 02/10/24 11:00 02/10/24 09:34 Acetaminophen 500 Mg Tablet PO 02/10/24 11:01 1,000 mg PREOP ONE Administration Celecoxib 400 mg 02/10/24 11:00 02/10/24 09:34 Celecoxib 200 Mg Capsule PO 02/10/24 11:01 400 mg X1 ONE Administration Enoxaparin Sodium 40 mg 02/10/24 11:00 02/10/24 09:35 Enoxaparin 40 Mg/0.4 Ml Syringe SC 02/10/24 11:01 40 mg X1 ONE Administration Gabapentin 600 mg 02/10/24 11:00 02/10/24 09:45 Gabapentin 600 Mg Tablet PO 02/10/24 11:01 Not Given PREOP ONE Lactated Ringer's 1,000 mls @ 40 mls/hr 02/10/24 11:00 IV .Q25H NEHEMIAS Cefazolin Sodium 2 gm/ N/A 20 mls @ 400 mls/hr 02/10/24 11:00 IV 02/10/24 11:02 PREOP ONE Magnesium Sulfate 1 gm/ 102 mls @ 408 mls/hr 02/10/24 11:00 02/10/24 09:35 Dextrose IV 02/10/24 11:14 408 mls/hr X1 ONE Administration Lactated Ringer's 1,000 mls @ 15 mls/hr 02/10/24 09:15 02/10/24 09:33 IV 02/15/24 22:34 15 mls/hr .Q48H NEHEMIAS Administration Protocol Insulin Human Lispro 0 unit 02/10/24 11:00 Insulin Lispro 100 Unit/Ml Insuln.Pen SC Q4H PRN PRN BG >/= 180, SEE PROTOCOL Protocol Ondansetron HCl 4 mg 02/10/24 11:00 Ondansetron 4 Mg/2 Ml Vial IV 02/10/24 11:01 X1 ONE Phenazopyridine HCl 190 mg 02/10/24 11:00 02/10/24 09:34 Phenazopyridine 95 Mg Tablet PO 02/10/24 11:01 190 mg X1 ONE Administration PFSH Medical History Wears glasses PTSD (post-traumatic stress disorder) Marijuana use Rash Easy bruising Syncope Non-smoker History of edema Wears contact lenses Depression Anxiety History of steroid therapy Arthritis Anemia Back pain Migraine headache History of IBS Gastric reflux Sleep apnea Asthma Leg cramps Fibromyalgia History of pain when walking Hypertension Hx of fracture of wrist Sprain of left foot Left ankle sprain Home Medications ?Medication ?Instructions ?Recorded ?Last Taken ?Type hydrochlorothiazide 25 mg tablet 25 mg PO DAILY 03/01/13 Unknown History montelukast 10 mg tablet 10 mg PO DAILY 03/01/13 03/13/15 08:30 History propranolol 20 mg tablet 40 mg PO BID 03/01/13 02/10/24 History rizatriptan 10 mg tablet 10 mg PO .X1 PRN 06/14/13 Unknown History albuterol sulfate 90 mcg/actuation 1 puff inhalation Q6H PRN PRN 03/10/15 Unknown History aerosol inhaler (Ventolin HFA) ASTHMA escitalopram oxalate 10 mg tablet 20 mg PO DAILY 04/28/19 Unknown History (Lexapro) ondansetron 4 mg disintegrating 4 mg PO Q8H PRN PRN Nausea 04/28/19 Unknown History tablet topiramate 100 mg tablet 50 mg PO 0800 04/28/19 02/05/21 History topiramate 100 mg tablet 100 mg PO QHS 04/28/19 Unknown History ferrous gluconate 324 mg (38 mg 324 mg PO BID 01/29/21 Unknown History iron) tablet gabapentin 300 mg capsule 400 mg PO TID 01/29/21 02/10/24 History pantoprazole 40 mg tablet,delayed 40 mg PO DAILY 01/29/21 02/10/24 History release potassium chloride 8 mEq 8 meq PO BID 01/29/21 Unknown History tablet,extended release tizanidine 2 mg tablet 2 mg PO QHS 01/29/21 Unknown History trazodone 50 mg tablet 100 mg PO QHS 01/29/21 Unknown History ibuprofen 800 mg tablet 800 mg PO Q8H PRN pain #30 tabs 02/05/21 Unknown Rx bupropion HCl 300 mg 24 hr tablet, 300 mg PO DAILY 01/27/24 Unknown History extended release dicyclomine 10 mg capsule 10 mg PO Q6H PRN PRN abdominal pain 01/27/24 Unknown History prazosin 2 mg capsule 4 mg PO QHS 01/27/24 Unknown History Allergy/AdvReac Type Severity Reaction Status Date / Time Environmental Allergies: Allergy WHEEZING Verified 02/10/24 09:19 Uncoded (seasonal) erythromycin base Allergy Rash Verified 02/10/24 09:19 Food Allergies: Uncoded Allergy Other Verified 02/10/24 09:19 Surgical History History of endometrial ablation History of surgery on wrist Hx of tubal ligation Hx of section Social History Smoking Status: Former smoker Review of Systems (Anesthesia) ROS Narrative System reviewed and no additional complaints, except as documented.
[2024-02-10 10:22] LABS: Bedside Glucose 93 mg/dL (74-106)
[2024-02-10] MEDS: Cefazolin 2 GM in Syringe IV (12:01)
[2024-02-10] MEDS: Bupivacaine 0.25% 30 ML Vial (12:10)
[2024-02-10] MEDS: Ondansetron 4 MG/2 ML Vial IV (14:10)
--- NOTE | 2024-02-10 14:27 | DCINST_ITS ---
Discharge Instructions Diet Discharge Diet: No restrictions Activity Discharge Activity: May Drive (once you do not need oxycodone. once you feel strong enough to slam on a brake or turn a steering wheel sharply) and May Shower (once you are more than 24 hours out from surgery) May resume sexual activity in: 6-8 weeks (no tampons, no intercourse, and no soaking in water until your 6 week follow up) Ice area for (Minutes): 15 Weight Bearing Status: Weight bearing as tolerated Lifting Restrictions: nothing heavier than 10 pounds for 6 weeks Additional Activity Instructions:: no pushing and pulling objects such as vacuum Dressing / Incision Call your doctor if your incision/area has: Continuous Slow Oozing, Sudden Increased Bleeding, Increased Pain/ Swelling, Increased Redness, Foul Smelling Discharge and Swelling at the incision site Call your doctor if you observe: Fever of 101 or Higher, Inability to urinate, Inability to have a bowel movement, Using more than 1 pad per hour, Shortness of breath, Dizziness, Swelling in the ankles, Chest pain, Increased palpitations (i rregular heartbeat), Calf discomfort and Uncontrolled pain Suture Line Care: Avoid Pulling/Pushing and Avoid Pinching/Bending Remove Dressing in: leave until fall off Cleanse incision/area with: Soap & Water Follow Up Care Please Follow Up With: Marielle Calderon DO When: 1-2 weeks 6 weeks Test Results: Test results from this visit will be discussed in further detail at your follow- up appointment, if applicable. Discharge Plan Admission Primary Reason for Your Visit: surgery Attending Provider: Marielle Calderon Primary Care Provider: Evi Prather Consulting Providers: Akin Mcfadden Instructions Patient Instructions: Laparoscopic Hysterect Recovery Additional Instructions / Restrictions: Continue taking the Ibuprofen 800 mg q 8 hours for pain. I also sent in Tylenol 650 mg q 6 hours for pain. I recommend taking the Ibuprofen and Tylenol scheduled for the first 24-48 hours, and take the Oxycodone as needed. You can take Miralax as needed for constipation. Take the Colace twice daily while you are taking the Oxycodone to prevent constipation. Print Language: Swedish Discharge Orders/Prescriptions Prescriptions: New acetaminophen [Pain Reliever (acetaminophen)] 325 mg tablet 650 mg PO Q6H PRN (Reason: pain) Qty: 30 0RF oxycodone 5 mg tablet 5 mg PO Q6H PRN (Reason: pain) 7 Days Qty: 10 0RF docusate sodium [Colace] 100 mg capsule 100 mg PO BID Qty: 30 0RF Continued montelukast 10 MG tablet 10 mg PO DAILY hydrochlorothiazide 25 MG tablet 25 mg PO DAILY propranolol 20 MG tablet 40 mg PO BID rizatriptan 10 MG tablet 10 mg PO .X1 PRN albuterol sulfate [Ventolin HFA] 1 PUFF inhaler 1 puff inhalation Q6H PRN PRN (Reason: ASTHMA) ondansetron 4 MG tablet 4 mg PO Q8H PRN PRN (Reason: Nausea) topiramate 100 MG tablet 50 mg PO 0800 topiramate 100 MG tablet 100 mg PO QHS escitalopram oxalate [Lexapro] 10 MG tablet 20 mg PO DAILY tizanidine 2 mg tablet 2 mg PO QHS trazodone 50 mg tablet 100 mg PO QHS potassium chloride 8 mEq tablet extended release 8 meq PO BID pantoprazole 40 mg tablet,delayed release (DR/EC) 40 mg PO DAILY gabapentin 300 mg capsule 400 mg PO TID ferrous gluconate 324 mg (38 mg iron) tablet 324 mg PO BID ibuprofen 800 mg tablet 800 mg PO Q8H PRN (Reason: pain) Qty: 30 0RF bupropion HCl 300 mg tablet extended release 24 hr 300 mg PO DAILY prazosin 2 mg capsule 4 mg PO QHS dicyclomine 10 mg capsule 10 mg PO Q6H PRN PRN (Reason: abdominal pain) Other Ambulatory Orders: 12 Lead EKG (Routine) Timeframe: 20240130 Location: None Selected Ordered By: Dr. Marielle Calderon Referrals / Follow Up: Evi Prather DO [Primary Care Provider] - Disposition Disposition (needs filled in before D/C Order can be placed): Home, Self Care
--- NOTE | 2024-02-10 14:29 | PCM.OPRPT ---
Problems Associated Problem List Diagnoses (1) DUB (dysfunctional uterine bleeding): (2) Pelvic pain: (3) History of endometrial ablation: Operative Report (Standard) Operative Information Surgery/Procedure Performed: TLH, BS, cystoscopy Surgeon: Marielle Calderon Date of Procedure: 02/10/24 Procedure Start Time: 12:10 Procedure Stop Time: 14:17 Pre-Operative Diagnosis: DUB, pelvic pain, failed uterine ablation Post-Operative Diagnosis: As above, endometriosis Select all DRAINS/GRAFTS/IMPLANTS that apply: None Type of Anesthesia: General Special Medications: None Estimated Blood Loss: 20 cc Fluids Replaced: See anesthesia record Specimen collected: Yes Description of specimen(s) removed: Uterus, cervix, bilateral fallopian tubes Description of surgery: Patient was taken to the operating room where general anesthesia was induced and found to be adequate. She was prepped and draped in the dorsal lithotomy position using yellow fin stirrups. A Rizo catheter was placed in the bladder and left in place during the remainder of the case. A weighted speculum was inserted into the vagina to expose the cervix. A single-tooth tenaculum was used to grasp the anterior lip of the cervix. The cervix was serially dilated to accommodate her Liliana uterine manipulator. The uterine manipulator was placed in usual fashion and once confirmed to be in proper position, the single-tooth tenaculum and weighted speculum were removed. Gloves were changed and attention was turned to the abdominal portion of the procedure. Local was infiltrated at all port sites. An infraumbilical incision was made to accommodate a 5 mm port, which was placed under direct visualization using the laparoscope. Once confirmed intraperitoneal, CO2 insufflation was initiated. No injury was noted after entry upon inspection. A left lateral 5 mm port and a right lateral 5 mm port were placed under direct visualization with no injury noted upon entry. The patient was placed in steep Trendelenburg position. The uterus was upheld from below. There was endometriosis noted over the serosal surface of the uterus and in pelvic cul-de-sac. Bilateral ovaries were normal-appearing. Bilateral fallopian tubes noted a prior tubal sterilization but were normal-appearing otherwise. The left fallopian tube was elevated and followed out to the fimbriated end. The LigaSure device was then used to serially clamp, cauterize, and transect along the mesosalpinx hugging adjacent to the fallopian tube until reaching the level of the cornua. Once at the level of the cornua, the fallopian tube was transected and removed and sent to pathology for review. The right fallopian tube was then elevated and followed out to the fimbriated end. The LigaSure device was then used to serially clamp, cauterize, and transect along the mesosalpinx hugging adjacent to the fallopian tube until reaching level of the cornua. Once at the level of the cornua, the fallopian tube was transected and removed and sent to pathology for review. The left utero-ovarian ligament was clamped, cauterized, and transected. The ovarian pedicle was inspected and noted to be hemostatic. The right utero-ovarian ligament was clamped, cauterized, and transected. The right ovarian pedicle was inspected and noted to be hemostatic. The round ligament was then ligated and cut on the left side, and the anterior leaflet of the broad ligament was then taken down on the left side dissecting down towards the peritoneal reflection at the base of the bladder and adjacent to the cervix. The same process was then repeated on the right side such that both sides met and the anterior leaflet had been appropriately skeletonized. Care was taken on both sides to avoid injuring the ovaries, and to ensure the uterus was well-visualized bilaterally. Once the bladder was appropriately dissected and freed from the lower anterior uterine segment, and the tissues were skeletonized, the uterine arteries were bilaterally clamped and ligated. Pedicles were noted to be hemostatic. At the level of the plastic cup of the uterine manipulator, the vaginal vault was incised circumferentially with a monopolar hook. The uterus and cervix were delivered through the vagina and sent to pathology for review with the bilateral fallopian tubes. From below the pedicles were inspected and noted to be hemostatic. There was slight oozing noted along the posterior vaginal cuff, so a 2-0 Vicryl was used to run along the posterior vaginal cuff to achieve hemostasis in a running locked fashion. The vaginal cuff was then closed with 1-0 Vicryl using several [id number] sutures. Once the cuff was well reapproximated the sutures were trimmed. A cystoscopy was performed noting a normal-appearing bladder, and good bilateral ureteral jets. The cystoscope was then removed. The bladder was drained. The Rizo catheter was removed. A sponge stick was placed in the vagina. Gloves were changed and attention was turned to the abdominal portion of the procedure again. The abdomen was insufflated and the pedicles and vaginal cuff were inspected abdominally. Slight oozing was noted from the cuff. Hemoblast was placed over the pedicles and over the cuff. Hemostasis was noted after watching for several minutes. The abdomen was slowly exsufflated and again hemostasis was confirmed. All ports were removed and the abdomen was exsufflated. The skin was closed with 4-0 Monocryl and glue. The sponge stick was removed from the vagina, and a vaginal sweep was performed. All instrument, sponge, needle counts were correct. The patient was taken to the recovery room in stable condition. Surgical Findings: Bilateral ovaries and fallopian tubes normal appearing with prior tubal sterilization noted. Uterus normal appearing with endometriosis lesions noted over the serosal surface of the uterus. A few endometriosis lesions noted in the pelvic cul de sac. 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
--- NOTE | 2024-02-10 14:35 | PCM.POST.ANE ---
Anesthesia: Postop Eval I Current Vital Signs Temperature: 97.3 F Pulse Rate: 50 Blood Pressure: 107/65 Respiratory Rate: 18 Pulse Ox: 93 Assessment Airway patent: Yes Spontaneous unlabored respirations: Yes nausea: No Vomiting: No Anesthesia Complication: No Fluid Hydration Crystalloid volume administer (ml): 1,200 Total IV fluid infused: 1,200 Progress Note Anesthesia document: Postop Eval 1 completed: Yes
[2024-02-10] MEDS: oxyCODONE 5 MG Tablet PO (16:23)
--- NOTE | 2024-02-10 16:23 | PCM.POSTANE2 ---
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 Spontaneous unlabored Yes 02/10/24 14:36 GARNETT [email or web address].CSIR respirations Mental status nausea No 02/10/24 14:36 GARNETT [email or web address] Vomiting No 02/10/24 14:36 GARNETT [email or web address].CSIR Anesthesia Postop Eval I: Fluid Summary Crystalloid volume administer 1,200 02/10/24 14:36 GARNETT [email or web address].CSIR (ml) Colloids volume administered ( ml) Blood Product volume administered (ml) Total IV fluid infused 1,200 02/10/24 14:36 GARNETT [email or web address].CSIR Anesthesia Postop Eval I: Summary Notes Anesthesia Complication No 02/10/24 14:36 GARNETT [email or web address].CSIR Anesthesia Complication Comment: Post-operative progress note Anesthesia: Postop Eval II Evaluation Mental status: Awake Pain Level: 0 nausea: No Vomiting: No
--- NOTE | 2024-02-10 16:23 | POSTOPAN2_ITS ---
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 Spontaneous unlabored Yes 02/10/24 14:36 GLASS LAMINATING OPERATOR.CSIR respirations Mental status nausea No 02/10/24 14:36 GLASS LAMINATING OPERATOR.CSIR Vomiting No 02/10/24 14:36 GLASS LAMINATING OPERATOR.CSIR Anesthesia Postop Eval I: Fluid Summary Crystalloid volume administer 1,200 02/10/24 14:36 GLASS LAMINATING OPERATOR.CSIR (ml) Colloids volume administered ( ml) Blood Product volume administered (ml) Total IV fluid infused 1,200 02/10/24 14:36 GLASS LAMINATING OPERATOR.CSIR Anesthesia Postop Eval I: Summary Notes Anesthesia Complication No 02/10/24 14:36 GLASS LAMINATING OPERATOR.CSIR Anesthesia Complication Comment: Post-operative progress note Anesthesia: Postop Eval II Evaluation Mental status: Awake Pain Level: 0 nausea: No Vomiting: No
== END 2024-02-10 17:44 | disposition home or self-care (01) ==
LOC: SDC 09:02 → AC 09:03
PROVIDERS: Anesthesiology; PCP Family Medicine; Referring Provider Obstetrics & Gynecology; Visit Provider Obstetrics & Gynecology
PROC: 0UT94ZZ Resection of Uterus, Percutaneous Endoscopic Approach (ICD-10-PCS; CPT 58571; principal; 2024-02-10 10:40)
DX: N93.8 Other specified abnormal uterine and vaginal bleeding (principal); N80.03 Adenomyosis of the uterus; N87.9 Dysplasia of cervix uteri, unspecified; L72.0 Epidermal cyst; J45.909 Unspecified asthma, uncomplicated; I10 Essential (primary) hypertension; F17.210 Nicotine dependence, cigarettes, uncomplicated; K21.9 Gastro-esophageal reflux disease without esophagitis; F32.A Depression, unspecified; F41.9 Anxiety disorder, unspecified; G43.909 Migraine, unspecified, not intractable, without status migrainosus; Z79.51 Long term (current) use of inhaled steroids; Z79.899 Other long term (current) drug therapy; Z86.16 Personal history of COVID-19
CPT/HCPCS: 58571; 00840; 36415; 80048; 80076; 82962; 83735; 85027; 85610; 85730; 86850; 86900; 86901; 88307; 93005; J7120; J1940; J2405; J3475

== ENCOUNTER → 2025-03-14 | Outpatient (CLI) | payer MEDICAID, SELFPAY ==
--- NOTE | 2025-03-14 14:49 | RAD_ITS ---
PROCEDURE: ANKLE MIN 3 VIEWS 03/14/2025 REASON FOR EXAM: PAIN, FELL ON ICE OVER A WEEK AGO TECHNIQUE: Procedure Code: RADANK Modality: DX Procedure: ANKLE MIN 3 VIEWS Laterality: Right ankle COMPARISON: None FINDINGS: Bones: No fracture. Joints: Normal alignment. Mortise appears intact. No effusion. Soft tissues: Soft tissue swelling. Other: RAD/Ankle min 3 Views IMPRESSION: Soft tissue swelling. No fracture seen. Reading Location: [facility]
== END | disposition home or self-care (01) ==
LOC: MTRAD 14:49
PROVIDERS: PCP Family Medicine; Referring Provider Physician Assistant Surgical; Visit Provider Physician Assistant Surgical
DX: M25.571 Pain in right ankle and joints of right foot (principal)
CPT/HCPCS: 73610